=== PATIENT | male | born 1950 | race Caucasian/White ===

== ENCOUNTER → 2021-02-01 09:43 | Outpatient (BNVA) | payer MEDICARE, OTHER, SELFPAY | PROVIDERS: Family Provider Electrodiagnostic Medicine; Visit Provider Family Medicine | DX: R35.1 Nocturia (principal); Z13.6 Encounter for screening for cardiovascular disorders; E11.9 Type 2 diabetes mellitus without complications; I10 Essential (primary) hypertension; K21.9 Gastro-esophageal reflux disease without esophagitis | CPT/HCPCS: 80053; 80061; 82043; 84153; 85025 ==

== ENCOUNTER → 2021-06-28 10:10 | Outpatient (BNVA) | payer MEDICARE, SELFPAY | PROVIDERS: Family Provider Electrodiagnostic Medicine; PCP Family Medicine; Visit Provider Family Medicine | DX: G62.9 Polyneuropathy, unspecified (principal); K21.9 Gastro-esophageal reflux disease without esophagitis; J44.9 Chronic obstructive pulmonary disease, unspecified | CPT/HCPCS: 82607; 84443 ==

== ENCOUNTER → 2021-12-27 08:58 | Outpatient (BNVA) | payer MEDICARE, SELFPAY | PROVIDERS: Family Provider Electrodiagnostic Medicine; PCP Family Medicine; Visit Provider Family Medicine | DX: I10 Essential (primary) hypertension (principal); E53.8 Deficiency of other specified B group vitamins; R35.1 Nocturia; J43.1 Panlobular emphysema; G62.9 Polyneuropathy, unspecified; F17.219 Nicotine dependence, cigarettes, with unspecified nicotine-induced disorders | CPT/HCPCS: 80053; 80061; 82043; 82607; 84153; 85025 ==

== ENCOUNTER 2022-04-11 16:13 | Outpatient (RCR) | payer MEDICARE, SELFPAY | END 2022-04-13 23:59 | disposition home or self-care (01) | LOC: SPT 16:13 | PROVIDERS: PCP Family Medicine; Referring Provider Family Medicine; Visit Provider Family Medicine | DX: H81.12 Benign paroxysmal vertigo, left ear (principal) | CPT/HCPCS: 97162 ==

== ENCOUNTER 2022-06-13 07:59 | Outpatient (CLI) | payer MEDICARE, SELFPAY ==
--- NOTE | 2022-06-13 08:30 | US_ITS ---
WS: [id number] Complete ABDOMINAL ULTRASOUND HISTORY: chronic abdominal pain COMPARISON: None available. Liver: 13.6 cm in length. Liver is normal size and echogenicity with no mass or intrahepatic dilatati on. Portal Vein: Normal hepatopetal flow with monophasic waveform. Gallbladder: Prior cholecystectomy. Pancreas: Normal size and echogenicity. CBD: 0.4 cm. Right kidney: 9.7 cm x 4.8 cm x 4.6 cm. No mass, cortical thickening or hydronephrosis. Left kidney: 9.4 cm x 4.6 cm x 4.2 cm. No mass, cortical thickening or hydronephrosis. Spleen: Normal size and echogenicity. Abdominal aorta and IVC are within normal limits. No ascites. US/US abdomen complete* [id number] IMPRESSION: 1. Prior cholecystectomy. 2. Otherwise abdominal ultrasound is negative.
== END 2022-06-13 08:00 | disposition home or self-care (01) ==
PROVIDERS: PCP Family Medicine; Visit Provider Family Medicine
DX: R10.9 Unspecified abdominal pain (principal); G89.29 Other chronic pain; Z90.49 Acquired absence of other specified parts of digestive tract
CPT/HCPCS: 76700

== ENCOUNTER 2022-09-04 09:11 | Outpatient (CLI) | payer MEDICARE, SELFPAY ==
--- NOTE | 2022-09-04 09:34 | CT_ITS ---
WS: [id number] LDCT LUNG CANCER SCREENING HISTORY: smoker TECHNIQUE: Axial imaging performed from the apices to 1 cm below the costophrenic angles. Coronal and sagittal reformats are submitted with axial MIP series. All CT scans at [facility] use at least one of these dose optimization techniques: automated exposure control; mA and/or kV adjustment per patient size (includes targeted exams where dose is matched to clinical indication); or iterativ e reconstruction. DLP: 81.89 mGy.cm DIvol: Mean CTDIvol: 1.60 (mGy) COMPARISON: 09/16/2019 Diagnostic quality: Satisfactory Lung Nodules: There are no nodules greater than 4 mm throughout the lungs. There are a few tiny micro nodules scattered throughout the lungs but which are less than 3 mm. Extensive bullous and bleb disea se. Large calcification in the RIGHT lower lobe measures 1.7 x 2.8 cm and is benign. There are a few may thin linear septations within the bronchial tree. Lungs: Marked pulmonary hyperexpansion. Heart: Normal size heart. No pericardial effusion. Other findings: Small mediastinal and hilar lymph nodes. There are numerous lymph nodes in the medias tinum which have slightly increased in size and number but are all very small. These could be reactiv e. Esophagus is dilated with debris. Similar to the prior study. No adrenal mass. This splenic granul omata. Prior cholecystectomy. Osteopenia. Mild anterior wedging of T3. Remote fracture superior sternal body. CT/CT lung screening [id number] IMPRESSION: LUNG-RADS: 2-Benign Appearance or Behavior FOLLOW UP: 12 Month: Continue annual screening with LDCT OTHER FINDINGS (S MODIFIER): None.
== END 2022-09-04 09:12 | disposition home or self-care (01) ==
PROVIDERS: PCP Family Medicine; Visit Provider Family Medicine
DX: Z12.2 Encounter for screening for malignant neoplasm of respiratory organs (principal); F17.219 Nicotine dependence, cigarettes, with unspecified nicotine-induced disorders
CPT/HCPCS: 71271

== ENCOUNTER → 2022-12-05 14:27 | Outpatient (BNVA) | payer MEDICARE, SELFPAY | PROVIDERS: PCP Family Medicine; Visit Provider Family Medicine | DX: J43.1 Panlobular emphysema (principal); J84.10 Pulmonary fibrosis, unspecified | CPT/HCPCS: 71046 ==

== ENCOUNTER 2022-12-06 11:33 | Outpatient (CLI) | payer MEDICARE, SELFPAY ==
--- NOTE | 2022-12-06 11:56 | XRR_ITS ---
PROCEDURE INFORMATION: Exam: XR Thoracic Spine Exam date and time: 12/06/2022 12:00 PM Age: 72 years old Clinical indication: Pain in thoracic spine; Prior surgery; Surgery type: Esophageal; Additional info: Back pain TECHNIQUE: Imaging protocol: Radiologic exam of the thoracic spine. Views: 3 views. COMPARISON: CT chest performed September 04 2022 FINDINGS: Bones/joints: Thoracic curvature alignment is unremarkable. There is a moderate wedge-shaped compression fracture T9, developed from September 04, 2022. Remaining vertebral bodies are intact. Mild degenerative disc changes are present in the lower thoracic spine. Soft tissues: Paraspinal soft tissues are unremarkable. Large calcified mass right lower lobe unchanged previously evaluated on CT. XR/XR thoracic spine 2V [id number] IMPRESSION: Moderate wedge-shaped compression fracture T9 developed from August 2022.
== END 2022-12-06 11:34 | disposition home or self-care (01) ==
LOC: LAB 11:36
PROVIDERS: PCP Family Medicine; Visit Provider Family Medicine
DX: M48.54XA Collapsed vertebra, not elsewhere classified, thoracic region, initial encounter for fracture (principal)
CPT/HCPCS: 72070

== ENCOUNTER 2022-12-26 14:41 | Outpatient (CLI) | payer MEDICARE, SELFPAY ==
--- NOTE | 2022-12-26 15:00 | CTR_ITS ---
PROCEDURE INFORMATION: Exam: CTA Abdomen With Contrast Exam date and time: 12/26/2022 3:34 PM Age: 72 years old Clinical indication: Abdominal pain; Localized; Right upper quadrant (ruq); Prior surgery; Surgery type: Gb, esophagus; Additional info: Chronic abd pain TECHNIQUE: Imaging protocol: Computed tomographic angiography of the abdomen with contrast. 3D rendering (Not supervised by radiologist): MIP and/or 3D reconstructed images were created by the technologist. Radiation optimization: All CT scans at this facility use at least one of these dose optimization techniques: automated exposure control; mA and/or kV adjustment per patient size (includes targeted exams where dose is matched to clinical indication); or iterative reconstruction. Contrast material: OMNI 350; Contrast volume: 95 ml; Contrast route: INTRAVENOUS (IV); REPORTING DATA: Count of CT and Cardiac NM exams in prior 12 months: This patient has received [address] and 0 known cardiac nuclear medicine studies in the 12 months prior to the current study. COMPARISON: CT angio abdomen [id number] 04/16/2019 9:24 AM RADIATION DOSE METRICS: Total DLP (mGy-cm): 150.2 FINDINGS: Lungs: Emphysematous changes. Aorta: No aortic aneurysm. No aortic dissection. Celiac trunk and mesenteric arteries: Celiac and superior mesenteric artery proximal atherosclerosis with less than 25% luminal narrowing. Renal arteries: Right proximal renal artery large amount of atherosclerotic calcification with 80-90% luminal narrowing. Left renal artery eccentric atherosclerotic calcification with suspected 70-80% luminal narrowing. Liver: Hepatic steatosis. Gallbladder and bile ducts: Cholecystectomy. Pancreas: Normal. No ductal dilation. Spleen: Normal. No splenomegaly. Adrenal glands: Normal. No mass. Kidneys and ureters: Normal. No hydronephrosis. Stomach and bowel: Prominent fluid in the small bowel without dilation may reflect an enteritis. Lymph nodes: Unremarkable. No enlarged lymph nodes. Intraperitoneal space: Unremarkable. No free air. No significant fluid collection. Bones/joints: L4 vertebral body superior endplate minimal compression deformity without retropulsion of bony fragments, new compared to prior exam. Soft tissues: Unremarkable. CT/CT angio abdomen [id number] IMPRESSION: 1. Prominent fluid in the small bowel without dilation may reflect an enteritis. 2. Right proximal renal artery large amount of atherosclerotic calcification with 80-90% luminal narrowing. 3. Left renal artery eccentric atherosclerotic calcification with suspected 70-80% luminal narrowing. 4. Celiac and superior mesenteric artery proximal atherosclerosis with less than 25% luminal narrowing. 5. Emphysematous changes. 6. Hepatic steatosis. 7. Cholecystectomy. 8. L4 vertebral body superior endplate minimal compression deformity without retropulsion of bony fragments, new compared to prior exam.
[2022-12-26 15:30] LABS: Blood Urea Nitrogen 14 mg/dL (8-23)
[2022-12-26] MEDS: iohexol 350 mg/mL 500 mL Btl (per mL) IV (15:42)
== END 2022-12-26 14:42 | disposition home or self-care (01) ==
LOC: RAD 14:44
PROVIDERS: PCP Family Medicine; Visit Provider Family Medicine
DX: R10.9 Unspecified abdominal pain (principal); I70.1 Atherosclerosis of renal artery; K55.1 Chronic vascular disorders of intestine; K76.0 Fatty (change of) liver, not elsewhere classified; Z90.49 Acquired absence of other specified parts of digestive tract
CPT/HCPCS: 74175; 82565; 84520; Q9967

== ENCOUNTER 2023-01-04 12:19 | Outpatient (CLI) | payer MEDICARE, SELFPAY ==
--- NOTE | 2023-01-04 13:00 | MR_ITS ---
WS: [id number] MRI THORACIC SPINE WITHOUT CONTRAST TECHNIQUE: Sagittal T1, T2 and STIR imaging. Axial T2 imaging. Noncontrast imaging obtained. CLINICAL INFORMATION: S29.019A - Strain of muscle and tendon of unspecified wal... COMPARISON: Radiograph December 04, 2022 FINDINGS: Counting performed from the craniocervical junction. Moderate thoracic kyphosis. Acute compression fracture in the lower thoracic spine T10 with diffuse e denae and anterior wedging. Loss of approximately 40% vertebral body height anteriorly. No significant retropulsion. Fracture line visualized in the superior endplate. Mild paravertebral soft tissue neil a. No other acute compression fractures. Cord signal is normal. Moderate facet arthropathy lower thoracic spine. Normal caliber thoracic aorta. Patulous thoracic eso phagus can be seen with achalasia. Moderate central canal stenosis seen on the cervical spine security sales consultant imaging at C3-C6 due to disc osteoph yte protrusions. This can be further evaluated with cervical spine MRI. Chronic biconcave compression with anterior wedging at T3 MR/MR thoracic spin wo con* [id number] IMPRESSION: 1. Acute compression with anterior wedging at T10 with diffuse edema. Loss of approximately 40% vertebral body height. No retropulsion. No high-grade central canal stenosis. 2. No other acute compression fractures. 3. Chronic biconcave compression at T3 with anterior wedging. 4. Moderate central canal stenosis in the cervical spine seen on the security sales consultant elizabeth ging. This can be further evaluated with cervical spine MRI. 5. Cord signal appears normal.
== END 2023-01-04 12:20 | disposition home or self-care (01) ==
LOC: RAD 12:23
PROVIDERS: PCP Family Medicine; Visit Provider Family Medicine
DX: S29.019A Strain of muscle and tendon of unspecified wall of thorax, initial encounter (principal); M48.54XA Collapsed vertebra, not elsewhere classified, thoracic region, initial encounter for fracture; M48.02 Spinal stenosis, cervical region; X58.XXXA Exposure to other specified factors, initial encounter
CPT/HCPCS: 72146

== ENCOUNTER → 2023-01-09 13:32 | Outpatient (BNVA) | payer MEDICARE, SELFPAY | PROVIDERS: PCP Family Medicine; Referring Provider Family Medicine; Visit Provider Physician Assistant | DX: S22.070A Wedge compression fracture of T9-T10 vertebra, initial encounter for closed fracture (principal); W13.3XXA Fall through floor, initial encounter | CPT/HCPCS: 99203 ==

== ENCOUNTER 2023-01-11 10:40 | Outpatient (CLI) | payer MEDICARE, SELFPAY | END 2023-01-11 10:41 | disposition home or self-care (01) | LOC: RADOUTREAD 01-12 10:41 → RT 01-12 11:38 | PROVIDERS: PCP Family Medicine; Visit Provider Orthopaedic Surgery | DX: Z13.6 Encounter for screening for cardiovascular disorders (principal) | CPT/HCPCS: 93005 ==

== ENCOUNTER 2023-01-17 05:38 | Day surgery (SDC) | payer MEDICARE, SELFPAY ==
[2023-01-11 10:53] VITALS: BMI 18.1
--- NOTE | 2023-01-11 11:16 | ECG_ITS ---
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 Measurements Intervals [place] Rate: 60 P: 85 [place]: 183 QRS: 61 QRSD: 75 T: 79 QT: 386 QTc: 388 Interpretive Statements SINUS RHYTHM No previous ECG available for comparison Electronically Signed On 01-11-2023 18:47:09 CDT by Иван Lazar M.D. [id number]
[2023-01-11 11:30] LABS: Anion Gap 17.3 (5-19); Blood Urea Nitrogen 23 mg/dL (8-23); Carbon Dioxide 26 mmol/L (22-29); Chloride 103 mmol/L (98-107); Glucose 96 mg/dL (65-115); Osmolality Calculated 298 mOsm/kg (285-295); Potassium 4.3 mmol/L (3.5-5.1); Sodium 142 mmol/L (136-145)
--- NOTE | 2023-01-11 17:10 | ANES.PREANE2 ---
Pre-Anesthetic Assessment Height/Weight: Height 1.68 m Weight 50.802 kg Operation Date: 01/17/23 13:15 Proposed Procedures p Kyphoplasty: T10 69573 T14.8XXA(Not Applicable) - Akil Pierce DO Familial anesthetic complications: none Was Beta Sanjay taken within 24 hours: N/A Was Clonidine taken within 24 hours: N/A Social Tobacco and No alcohol Exam alert, oriented x 3 and regular rate & rhythm Airway Submandibular: within normal limits Cervical ROM: within normal limits Mallampati: Class II Dentition: false Pulmonary Chronic Obstructive Pulmonary Disease CV/HEM Hypertension and Peripheral Vascular Disease OSITO GI Gastroesophageal Reflux Disease Anesthetic Plan ASA status: 3 Anesthesia: General Medications/Allergies Home Medications Medication Instructions Recorded Confirmed Last Taken Type albuterol sulfate 90 mcg/actuation 2 puff inhalation QID PRN 06/26/22 01/11/23 01/11/23 Rx aerosol inhaler (Ventolin HFA) shortness of breath or wheezing #8.5 grams budesonide-formoterol HFA 160 2 puff inhalation Q12H #10.2 grams 06/26/22 01/11/23 Unknown Rx mcg-4.5 mcg/actuation aerosol inhaler (Symbicort) cyanocobalamin (vitamin B-12) 1,000 mcg IM .Every 3 weeks 6 06/26/22 01/11/23 Unknown Rx 1,000 mcg/mL injection solution months #10 mL lisinopril 40 mg tablet 40 mg PO DAILY #90 tabs 06/26/22 01/11/23 01/11/23 Rx pantoprazole 40 mg tablet,delayed 40 mg PO DAILY 90 days #90 tabs 06/26/22 01/11/23 01/11/23 Rx release (Protonix) baclofen 10 mg tablet 10 mg PO TID PRN muscle spasms #60 11/21/22 01/11/23 Unknown Rx tabs amlodipine 10 mg tablet 10 mg PO DAILY #90 tabs 12/21/22 01/11/23 01/11/23 Rx tramadol 50 mg tablet 50 mg PO BID PRN pain #14 tabs 12/29/22 01/11/23 01/10/23 Rx Allergies Allergy/AdvReac Type Severity Reaction Status Date / Time No Known Allergies Allergy Verified 01/11/23 10:51 PFSH Anesthesia Medical History Arthritis of both hands GERD (gastroesophageal reflux disease) Hypertension Surgical History History of cholecystectomy History of esophageal surgery History of achalasia Family History Brother Cancer UNKNOWN KIND Sister Cancer BREAST Father Cancer PROSTATE Social History Smoking and tobacco status: current every day smoker cigarettes Packs smoked per day: 0.75 Alcohol intake: never Data Anesthesia 01/11/23 11:00 BMP 01/11/23 11:00 Sodium 142 Potassium 4.3 Chloride 103 Carbon Dioxide 26 BUN 23 Creatinine 1.0 Glucose 96 Calcium 9.0 Cardiac Studies: No Data to Display
--- NOTE | 2023-01-17 | SC_ITS ---
WS: [id number] XR lumbar spine 1V 03080 REASON FOR EXAM: or pics FINDINGS: Vertebral plasty from and left posterior oblique approach at the T10 acute/subacute compression fract ure. Radiopaque methylmethacrylate is within the central portion of the thoracic vertebrae and fractu re. There is some extravasation of the methylmethacrylate into the paravertebral soft tissues anteriorly. SC/C-arm FL for Kyphoplasty IMPRESSION: T10 vertebroplasty as above.
[2023-01-17 06:11] VITALS: BP 131/71; PULSE 57; RESP 16; TEMP 36.6; O2SAT 94
[2023-01-17] MEDS: sodium chloride 0.9% 1,000 ML 30 ML IV (06:21)
--- NOTE | 2023-01-17 06:35 | P.ANESUD_ITS ---
Pre-Anesthetic Update Pre-Anesthetic Assessment: Date of Surgery/Procedure: 01/17/23 Preop Tiana gnosis: Thoracic 10 compression fracture Proposed Procedure: Operation Date: 01/17/23 07:00 Proposed Procedures p Kyphoplasty: T10 91859 T14.8XXA(Not Applicable) - Akil Pierce, DO Any changes to Pre-Anesthetic Assessment?: No Last Intake: Intake Last Liquid Date 01/16/23 Last Liquid Time 20:00 Last Solid Date 01/16/23 Last Solid Time 16:00 Vitals: Temperature 97.8 F 01/17/23 06:11 Temperature Source Temporal Artery S can 01/17/23 06:11 Pulse Rate 57 L 01/17/23 06:11 Respiratory Rate 16 01/17/23 06:11 Blood Pressure 131/71 01/17/23 06:11 Blood Pressure Fiordaliza n 91 01/17/23 06:11 Pulse Oximetry 94 01/17/23 06:11 Oxygen Delivery Me thod 01/17/23 06:11 Exam: Pre-Anes Outpt Exam: alert, oriented x 3, clear to auscultation bilaterally and regular rate & rhythm Cardiac Studies: No Data to Display
--- NOTE | 2023-01-17 06:44 | W.PM.OPSUD ---
Surgery/Procedure H&P Update DATE OF PROCEDURE: January 17, 2023 DATE H&P PERFORMED: 01/09/23 H&P UPDATE INFORMATION: I have reviewed H&P completed within last 30 days, I have examined patient prior to procedure and No changes to prior documentation PREOP DIAGNOSIS: Thoracic 10 compression fracture PLANNED PROCEDURE: Operation Date: 01/17/23 07:00 Proposed Procedures p Kyphoplasty: T10 13377 T14.8XXA(Not Applicable) - Akil Pierce DO
[2023-01-17] MEDS: ceFAZolin 2,000 MG in sodium chloride 0.9% (plus) 50 ML 100 MG IV (06:54)
[2023-01-17] MEDS: lidocaine-epi 1% 20 mL INJ INJECTION (07:30)
[2023-01-17] MEDS: iohexol 350 mg/mL 100 mL Btl 15 ML XX (07:32)
[2023-01-17 07:55] VITALS: BP 130/72; PULSE 67; RESP 18; TEMP 36.1; O2SAT 99
--- NOTE | 2023-01-17 07:58 | SUR.OPER ---
OMNIPAQUE 350 MGI/ML 15ML TO STERILE FIELD. [id number] EXP 03/09/25. [address] TATE
[2023-01-17 08:01] VITALS: BP 124/55; PULSE 70; RESP 18; TEMP 36.1; O2SAT 99
--- NOTE | 2023-01-17 08:02 | P.OP_ITS ---
Operative Report Date of procedure: January 17, 2023 Pre-op diagnosis: Preop Diagnosis Thoracic wedge osteoportic traumatic 10 compression fracture Post-op diagnosis: same Procedure done: T10 kyphoplasty Surgeon: Akil Pierce Canceling Machine Operator: Dylan Aguilar Canceling Machine Operator: The surgical coder, Dylan Aguilar, PAC was needed for his expertise with fractures. He was important and necessary throughout the procedure to complete in a safe and timely manner. He assisted with patient positioning prepping and draping Estimated blood loss (mL): 5 Procedure: T10 kyphoplasty Patient was brought to the operative suite after undergoing anesthesia was placed in the prone position. All areas appear well-padded. Patient was then prepped and draped no sterile fashion. The T10 nerve was identified under biplanar fluoroscopy. The skin incision made just lateral to the pedicle. The awl was inserted followed by the drill. Followed by the balloon. Balloon was inflated and deflated. Cement was then inserted AP lateral fluoroscopy ensured that the cement was in good position and wound was irrigated closed with nylon suture. Sterile dressings applied patient transferred to the PACU in stable addition.
[2023-01-17 08:07] VITALS: BP 118/60; PULSE 70; RESP 16; TEMP 36.1; O2SAT 96
[2023-01-17 08:20] VITALS: BP 135/63; PULSE 66; RESP 16; O2SAT 95
--- NOTE | 2023-01-17 09:41 | XR_ITS ---
WS: [email or web address] XR lumbar spine 1V 13349 REASON FOR EXAM: or pics FINDINGS: Vertebral plasty from and left posterior oblique approach at the T10 acute/subacute compression fract ure. Radiopaque methylmethacrylate is within the central portion of the thoracic vertebrae and fractu re. There is some extravasation of the methylmethacrylate into the paravertebral soft tissues anteriorly.
--- NOTE | 2023-01-17 13:11 | ANE.PACU2 ---
Inpatient post-anesthesia follow up: Airway intact: Yes Vital signs: Temperature 97.0 F Pulse Rate 66 Respiratory Rate 16 Blood Pressure 135/63 Pulse Oximetry 95 Oxygen Delivery Me thod Room Air Oxygen Flow Rate 6 Fraction of Inspir ed Oxygen Hydration adequate: Yes Nausea and vomiting: No Pain level: 1 Mental status: Baseline
== END 2023-01-17 08:30 | disposition home or self-care (01) ==
PROVIDERS: Anesthesiology; PCP Family Medicine; Visit Provider Orthopaedic Surgery
PROC: (CPT 22513; principal; 2023-01-17 07:00)
DX: S22.070A Wedge compression fracture of T9-T10 vertebra, initial encounter for closed fracture (principal); W13.3XXA Fall through floor, initial encounter; K21.9 Gastro-esophageal reflux disease without esophagitis; I10 Essential (primary) hypertension; F17.210 Nicotine dependence, cigarettes, uncomplicated; I73.9 Peripheral vascular disease, unspecified; J44.9 Chronic obstructive pulmonary disease, unspecified
CPT/HCPCS: 22513; 72020; 76000; 80048; J0690; J1100; J2370; J2405; J2704; J2710; J3010; J3490; J7030; Q9967

== ENCOUNTER → 2023-02-01 07:48 | Outpatient (BNVA) | payer MEDICARE, SELFPAY | PROVIDERS: PCP Family Medicine; Visit Provider Physician Assistant | DX: S22.070A Wedge compression fracture of T9-T10 vertebra, initial encounter for closed fracture (principal); X58.XXXA Exposure to other specified factors, initial encounter; Z98.890 Other specified postprocedural states | CPT/HCPCS: 99024 ==

== ENCOUNTER 2023-05-22 13:13 | Outpatient (CLI) | payer MEDICARE, SELFPAY ==
--- NOTE | 2023-05-22 13:30 | XR_ITS ---
WS: [email or web address] SCREENING DEXA SCAN [employer] CLINICAL INFORMATION: T10 compression fracture COMPARISON: None. FINDINGS: The L1-L4 bone mineral density measures 0.906 g/cm2. This corresponds to a T score score of -2.6 and Z score of -1.1. Left femoral neck bone mineral density measures 0.659 g/cm2. This corresponds to a T score of -3.1 an d Z score of -1.7. Right femoral neck bone mineral density measures 0.701 g/cm2. This corresponds to a T score -2.8of an d Z score of -1.4. Mean femoral neck bone mineral density measures 0.680 g/cm2. This corresponds to a T score of -2.9 an d Z score of -1.5. IMPRESSION: Osteoporosis lumbar spine. Osteoporosis femoral necks. Patient's FRAX calculated 10 year probability for major osteoporotic fracture is 30.7% and osteoporot ic hip fracture is 26.3%.
== END 2023-05-22 13:14 | disposition home or self-care (01) ==
PROVIDERS: PCP Family Medicine; Visit Provider Family Medicine
DX: Z13.820 Encounter for screening for osteoporosis (principal); M81.0 Age-related osteoporosis without current pathological fracture; S22.070A Wedge compression fracture of T9-T10 vertebra, initial encounter for closed fracture; X58.XXXA Exposure to other specified factors, initial encounter
CPT/HCPCS: 77080

== ENCOUNTER → 2023-08-14 09:53 | Outpatient (BNVA) | payer MEDICARE, SELFPAY | PROVIDERS: PCP Family Medicine; Visit Provider Family Medicine | DX: F17.219 Nicotine dependence, cigarettes, with unspecified nicotine-induced disorders (principal); Z13.6 Encounter for screening for cardiovascular disorders; I10 Essential (primary) hypertension; E11.9 Type 2 diabetes mellitus without complications; R35.1 Nocturia; E53.8 Deficiency of other specified B group vitamins | CPT/HCPCS: 80053; 80061; 82043; 82607; 84153; 85025 ==

== ENCOUNTER 2023-09-05 09:06 | Outpatient (CLI) | payer MEDICARE, SELFPAY ==
--- NOTE | 2023-09-05 09:15 | CT_ITS ---
WS: [email or web address] LDCT LUNG CANCER SCREENING HISTORY: screening TECHNIQUE: Axial imaging performed from the apices to 1 cm below the costophrenic angles. Coronal and sagittal reformats are submitted with axial MIP series. All CT scans at [facility] use at least one of these dose optimization techniques: automated exposure control; mA and/or kV adjustment per patient size (includes targeted exams where dose is matched to clinical indication); or iterativ e reconstruction. DLP: 597.91 mGy.cm DIvol: Mean CTDIvol: 14.20 (mGy) COMPARISON: 09/04/2022 and 10/13/2019 Diagnostic quality: Satisfactory Lungs: Marked pulmonary hyperexpansion and paraseptal and centrilobular emphysema. Bilateral calcifie d granulomata. There is a large calcification in the RIGHT lower lobe with mild soft tissue which is not calcified. No new pulmonary nodule. Heart: Normal size heart. Moderate coronary artery calcifications.. Other findings: Moderate atherosclerosis aorta. Normal sized pulmonary artery. There are several medi astinal and hilar lymph nodes which are mildly enlarged. Several of these contain calcifications and are similar to the prior study. Markedly patulous esophagus. There is debris within the mid to distal esophagus. Prior cholecystectomy. Methylmethacrylate in one of the midthoracic vertebral bodies with a 20% compression fracture, probably T10. Additional compression deformity in T3 and T5 unchanged si nce 2019. IMPRESSION: CT/CT lung screening [id number] LUNG-RADS: 2S-Benign Appearance or Behavior with Significant Findings FOLLOW UP: 12 Month: Continue annual screening with LDCT OTHER FINDINGS (S MODIFIER): Patulous esophagus. This can be seen with sclerode rma.
== END 2023-09-05 09:07 | disposition home or self-care (01) ==
LOC: RAD 09:06
PROVIDERS: PCP Family Medicine; Visit Provider Family Medicine
DX: Z12.2 Encounter for screening for malignant neoplasm of respiratory organs (principal); F17.219 Nicotine dependence, cigarettes, with unspecified nicotine-induced disorders
CPT/HCPCS: 71271

== ENCOUNTER 2023-12-18 16:02 | Outpatient (CLI) | payer MEDICARE, SELFPAY ==
--- NOTE | 2023-12-18 16:30 | CT_ITS ---
WS: [email or web address] CTA ABDOMEN TECHNIQUE: Noncontrast plus contrast enhanced CTA of the abdominal aorta with coronal and sagittal re formatted images and additional MIP Images. CLINICAL INFORMATION: OSITO COMPARISON: None. DLP: 110.[address] scans at [facility] use at least one of these dose optimization techniques: automated e xposure control; mA and/or kV adjustment per patient size (includes targeted exams where dose is matc hed to clinical indication); or iterative reconstruction. FINDINGS: Bilateral renal artery stenosis. Calcified RIGHT renal artery origin with high-grade stenosis measuri ng 91% is unchanged. RIGHT distal renal artery remains patent. Normal RIGHT renal parenchymal enhance ment. Accessory and main LEFT renal artery. Mild accessory artery stenosis appears unchanged. Main renal ar melissa stenosis appears stable with focal calcification at the origin measuring 77%. Normal renal paren chymal enhancement. Mild stenosis at the celiac origin which remains patent. SMA is patent. Moderate aortic atheromatous disease. LUCIE is patent. Proximal common iliac arteries are patent. Advanced emphysematous changes in the lung apices. Calcified granuloma RIGHT lower lobe. Distended st omach with food products. Normal renal parenchymal enhancement. Adrenal glands appear normal. Moderat e spondylitic changes lumbar spine. Mild compression superior endplate L4. IMPRESSION: 1. Stable bilateral renal artery stenosis. 2. Calcified RIGHT renal artery origin with high-grade stenosis measuring 91% is unchanged. 3. Main LEFT renal artery stenosis appears stable with focal calcification at the origin measuring 7 7%. 4. Normal bilateral renal parenchymal enhancement. 5. Mild stenosis at the celiac artery origin. SMA is patent. 6. Moderate aortic atheromatous disease. 7. Stable compression superior endplate L4
[2023-12-18 16:33] LABS: Blood Urea Nitrogen 17 mg/dL (8-23)
[2023-12-18] MEDS: iohexol 350 mg/mL 500 mL Btl (per mL) IV (16:41)
== END 2023-12-18 16:03 | disposition home or self-care (01) ==
LOC: RAD 16:03
PROVIDERS: PCP Family Medicine; Visit Provider Family Medicine
DX: I70.1 Atherosclerosis of renal artery (principal); I77.1 Stricture of artery; I70.0 Atherosclerosis of aorta
CPT/HCPCS: 74175; 82565; 84520; Q9967

== ENCOUNTER 2024-01-02 08:38 | Outpatient (CLI) | payer MEDICARE, SELFPAY ==
--- NOTE | 2024-01-02 08:43 | CTR_ITS ---
PROCEDURE INFORMATION: Exam: CT Temporal Bones Without Contrast. Exam date and time: 01/02/2024 8:54 AM Age: 73 years old Clinical indication: Other: Mixed conductive and sensorineural hearing loss TECHNIQUE: Imaging protocol: Computed tomography of the temporal bones without contrast. Radiation optimization: All CT scans at this facility use at least one of these dose optimization techniques: automated exposure control; mA and/or kV adjustment per patient size (includes targeted exams where dose is matched to clinical indication); or iterative reconstruction. COMPARISON: No relevant prior studies available. RADIATION DOSE METRICS: Total DLP (mGy-cm): 398.49 FINDINGS: Right inner ear: Thinning of the roof of the right superior semicircular canal. Superior semicircular canal dehiscence cannot be excluded. Recommend clinical correlation. Right ossicles and middle ear: The middle ear ossicles are intact. Right external auditory canal: Normal. Right facial nerve canal: Normal. Right jugular foramen: No jugular dehiscence. Right carotid canal: No aberrant carotid canal. Right mastoid air cells: Fluid is seen within the inferior right mastoid air cells with intact bony septations. Left inner ear: Thinning of the roof of the left superior semicircular canal. Superior semicircular canal dehiscence cannot be excluded. Recommend clinical correlation. Left ossicles and middle ear: The middle ear ossicles are intact. Left external auditory canal: Normal. Left facial nerve canal: Normal. Left jugular foramen: No jugular dehiscence. Left carotid canal: No aberrant carotid canal. Left mastoid air cells: Well aerated mastoid air cells with intact bony septations. Orbital cavities: The orbits and globes are intact. Paranasal sinuses: Moderate mucoperiosteal thickening is seen involving the right maxillary sinus. Soft tissues: Visualized soft tissues are unremarkable. CT/CT temporal bone wo con* [id number] IMPRESSION: 1. Thinning of the roofs of the bilateral superior semicircular canals. Superior semicircular canal dehiscence cannot be excluded. Recommend clinical correlation. 2. Small amount of fluid in the inferior right mastoid air cells.
== END 2024-01-02 08:39 | disposition home or self-care (01) ==
LOC: RAD 08:38
PROVIDERS: PCP Family Medicine; Visit Provider Otolaryngology
DX: H90.8 Mixed conductive and sensorineural hearing loss, unspecified (principal)
CPT/HCPCS: 70480

== ENCOUNTER → 2024-02-11 08:36 | Outpatient (BNVA) | payer MEDICARE, SELFPAY | PROVIDERS: PCP Family Medicine; Visit Provider Family Medicine | DX: I70.1 Atherosclerosis of renal artery (principal) | CPT/HCPCS: 80048 ==

== ENCOUNTER → 2024-03-18 12:30 | Outpatient (BNVA) | payer MEDICARE, SELFPAY | PROVIDERS: PCP Family Medicine; Referring Provider Family Medicine; Visit Provider Internal Medicine | DX: R07.9 Chest pain, unspecified (principal) | CPT/HCPCS: 93005; 99204 ==

== ENCOUNTER 2024-04-02 08:36 | Outpatient (CLI) | payer MEDICARE, SELFPAY ==
--- NOTE | 2024-04-02 09:24 | ECG_ITS ---
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 The perfusion scan will be documented separately. DATA: Baseline heart rate was 58 beats per minute. Baseline blood pressure was 170/90 millimeters of mercury. Maximum heart rate achieved was 131. which was 89 % of the predicted target heart rate. Maximum blood pressure was 171/90 millimeters of mercury. The reason for ending the test was completion of the protocol. The patient did not experience any symptoms. ELECTROCARDIOGRAM: BASELINE: Sinus rhythm. Normal axis. Old anteroseptal myocardial infarction otherwise no significant ST's ST changes EXERCISE: After Lexiscan injection, no ST-T changes suggestive of ischemic noted. No arrhythmia noted. CONCLUSION: Please note due to baseline abnormality of the EKG specificity and sensitivity of the EKG portion of LexiScan MIBI stress test will be low 1. EKG not suggestive of ischemia 2. Lexiscan injection unremarkable. 3. Perfusion scan will be documented separately. Electronically Signed On 04-02-2024 21:15:12 CDT by NEGRITA BOWLING [email or web address]
--- NOTE | 2024-04-02 09:26 | NMCV_ITS ---
NM irvin perf SPECT r/s* [id number] Alfonso Chand Age: 74 Gender: M : 1950 Exam Date: 04/02/2024 09:26 Ordering Phys: Иван Lazar M.D ([email or web address]) Technologist: PHILLIP Owusu Exam Location: [facility] [address] Indications: CP STRESS TEST Please see separate stress test report in [facility] for full findings IMAGE PROTOCOL Rest/Stress 1 Exercise Day Radiopharmaceutical Dose (mCi) Administration Site Administered by Rest: Tc-99m 10.4 IV PHILLIP Owusu Sestamisatci Stress:Tc-99m 32.9 IV PHILLIP Owusu Sestamibi Rest: 02-Apr-2024 60 Discovery 630 Stress: 02-Apr-2024 30 Discovery 630 0.4mg Lexiscan. Images obtained in supine and prone position. SPECT RESULTS Technical Quality: Good Raw Data Analysis: Normal, Subdiaphragmatic activity Image Corrections: No attenuation or motion correction applied Summed Stress Score: 0 Summed Rest Score: 0 Summed Difference Score: 0 PERFUSION FINDINGS SPECT images demonstrate homogeneous tracer distribution throughout the myocardium. FUNCTIONAL RESULTS (calculated via Gated SPECT) Stress Image LV EF (%): 75 Stress EDV (mL):60 TID: 1.22 Stress ESV (mL):15 FUNCTIONAL FINDINGS: There is normal left ventricular systolic function. IMPRESSIONS Myocardial perfusion imaging is normal. Elevated transient ischemic dilatation could be secondary to left ventricular hypertrophy in the absence of wall motion abnormality. Madeline Maria MD (Electronically Signed) Final Date: 02 April 2024 22:52 S
[2024-04-02 09:28] VITALS: BMI 18.2
[2024-04-02] MEDS: regadenoson 0.4 Mg/5 ml Syringe 0.400000000000000022 MG IVP (11:01)
[2024-04-02 11:18] VITALS: BP 162/79; PULSE 82
== END 2024-04-02 08:37 | disposition home or self-care (01) ==
PROVIDERS: PCP Family Medicine; Visit Provider Internal Medicine
DX: R07.9 Chest pain, unspecified (principal); R06.02 Shortness of breath
CPT/HCPCS: 36415; 78452; 93017; 96374; A9500; J2785

== ENCOUNTER → 2024-09-26 12:26 | Outpatient (BNVA) | payer MEDICARE, SELFPAY | PROVIDERS: PCP Family Medicine; Visit Provider Family Medicine | DX: E53.8 Deficiency of other specified B group vitamins (principal); R42 Dizziness and giddiness; F32.9 Major depressive disorder, single episode, unspecified | CPT/HCPCS: 82607; 84443; 85025 ==

== ENCOUNTER → 2024-09-30 14:11 | Outpatient (BNVA) | payer MEDICARE, SELFPAY | PROVIDERS: PCP Family Medicine; Visit Provider Internal Medicine | DX: I15.0 Renovascular hypertension (principal); I70.1 Atherosclerosis of renal artery; F17.210 Nicotine dependence, cigarettes, uncomplicated | CPT/HCPCS: 99214 ==

== ENCOUNTER 2024-10-09 02:21 | Inpatient (IN) | payer MEDICARE, SELFPAY ==
[2024-10-09] VITALS (39 sets, daily range): BP systolic 109–149; BP diastolic 59–81; PULSE 62–97; RESP 16–28; TEMP 36.3–37.3; O2SAT 90–100; BMI 18.8
--- NOTE | 2024-10-09 02:27 | XRR_ITS ---
PROCEDURE INFORMATION: Exam: XR Left Hip Exam date and time: 10/09/2024 2:31 AM Age: 74 years old Clinical indication: Injury or trauma; Fall; Blunt trauma (contusions or hematomas); Left; Hip and pelvic region; Additional info: Fall, left hip pain. With pelvis TECHNIQUE: Imaging protocol: Radiologic exam of the left hip. Views: 2 or 3 views hip with pelvis when performed. COMPARISON: CT angio abdomen [id number] 12/18/2023 4:34 PM FINDINGS: Bones/joints: Acute subcapital fracture in the left hip without dislocation. No destructive changes. Joint space is preserved. Soft tissues: Unremarkable. XR/XR hip LT 2-3V wo/w pel* [id number] IMPRESSION: Acute subcapital fracture in the left hip without dislocation.
--- NOTE | 2024-10-09 02:39 | ED_ITS ---
HPI - Fall 2 General: Chief Complaint: ER Hold Stated Complaint: left hip pain post fall Time Seen by Provider: 10/09/24 02:24 History of Present Illness: 74-year-old man with a history of COPD a nd hypertension who presents emergency room by ambulance after he got up from bed tonight and was walking to the bathroom and forgot his flashlight fell hurting his left hip and now is not able to bear weight. Some slight shortening with no rotation. Pain in the hip area. With movement. And with palpation. No head injury. No loss of consciousness. No altered mental status. No chest pain. No shortness of breath. No abdominal pain. No nausea or vomiting. Related Data Home Medications Medication Instructions Recorded Confirmed diazepam 2 mg tablet 2 mg PO BID PRN 09/04/24 09/30/24 Previous Rx's Medication Instructions Recorded albuterol sulfate 90 mcg/actuation See Rx Instructions .Route 02/11/24 aerosol inhaler (Ventolin HFA) .COMPLEX #8.5 grams amlodipine 10 mg tablet 10 mg PO DAILY #90 tabs 02/11/24 baclofen 10 mg tablet 10 mg PO .qhs PRN muscle spasms 02/11/24 #30 tabs pantoprazole 40 mg tablet,delayed 40 mg PO DAILY #90 tabs 02/11/24 release tramadol 50 mg tablet 50 mg PO BID PRN pain 30 days #60 02/29/24 tabs budesonide-formoterol HFA 160 2 puff inhalation Q12H #10.2 grams 04/07/24 mcg-4.5 mcg/actuation aerosol inhaler (Symbicort) lisinopril 40 mg tablet See Rx Instructions .Route 08/19/24 .COMPLEX #90 tabs bupropion HCl 150 mg 24 hr tablet, 150 mg PO QAM #30 tabs 09/26/24 extended release Allergies Allergy/AdvReac Type Severity Reaction Status Date / Time No Known Allergies Allergy Verified 10/09/24 02:37 Review of Systems 2 Narrative: Constitutional symptoms: Negative except as documented in HPI. Skin symptoms: Negative except as documented in HPI. Eye symptoms: Negative except as documented in HPI. ENMT symptoms: Negative except as documented in HPI. Respiratory symptoms: Negative except as documented in HPI. Cardiovascular symptoms: Negative except as documented in HPI. Gastrointestinal symptoms: Negative except as documented in HPI. Genitourinary symptoms: Negative except as documented in HPI. Musculoskeletal symptoms: Negative except as documented in HPI. Neurologic symptoms: Negative except as documented in HPI. Psychiatric symptoms: Negative except as documented in HPI. Endocrine symptoms: Negative except as documented in HPI. PFS ED 2 PFSH: Medical History COPD (chronic obstructive pulmonary disease) Screening for lung cancer Chronic low back pain OSITO (renal artery stenosis) B12 deficiency Nicotine dependence, cigarettes, with unspecified nicotine-induced disorders 40pk yr hx Problem of left ear seeing Dr. Reyes at [facility]--problems with balance after ear surgery, getting injections once a month and going to start PT Hypertension GERD (gastroesophageal reflux disease) Arthritis of both hands Surgical History Hx of kyphoplasty T10 traumatic compression fx History of ear surgery L ear--middle ear titanium bone; [facility] Summer 2023 History of cholecystectomy History of esophageal surgery History of achalasia; R thoracotomy for it Family History Brother Cancer UNKNOWN KIND Sister Cancer BREAST Father Cancer PROSTATE Social History Smoking and tobacco/nicotine status: current every day tobacco/nicotine user cigarettes Packs smoked per day: 0.25 Alcohol intake: never Substance/Drug Use: never Household members: spouse Marital status: Number of children: 3 Current occupational status: retired 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 Skin: Warm, dry. Head: Normocephalic, atraumatic. Neck: Supple, trachea midline. Eye: Extraocular movements are intact. Ears, nose, mouth and throat: mucosa moist. Cardiovascular: Regular, Normal peripheral perfusion. Respiratory: Lungs are clear to auscultation, respirations are non-labored, breath sounds are equal, Symmetrical chest wall expansion. Gastrointestinal: Soft, Nontender, Non distended Musculoskeletal: Shortening without rotation of the left leg. Pain in the hip area with palpation and with movement. Neurological: Alert and oriented, No focal neurological deficit observed. Psychiatric: Cooperative, appropriate mood & affect. Course 2 Vital Signs: Vital signs: Vital Signs Temperature 97.8 F 10/09/24 02:32 Pulse Rate 75 10/09/24 03:00 Respiratory Rate 17 10/09/24 02:32 Blood Pressure 149/74 10/09/24 02:32 Pulse Oximetry 93 10/09/24 03:00 Oxygen Delivery Me thod Room Air 10/09/24 03:00 MDM - Fall Medical Decision Making X-ray of the left hip and pelvis: There is a slightly impacted left femoral neck fracture. This was reviewed and interpreted by myself the emergency room physician. I also reviewed the radiology report. Chest x-ray: Some haziness in the upper lung farr. Stable calcified lesion in the right lung. This was reviewed and interpreted by myself the emergency room physician. I also reviewed the radiology report. Lab Review: Laboratory results were reviewed and interpreted by myself the emergency room physician. No leukocytosis. No anemia. No renal failure. Liver enzymes are normal. I reviewed the patient's medical record. Reexamination: Patient remained stable. No increased work of breathing. No altered mental status. No focal motor deficits. Consultation: I spoke with Dr. Madison who will admit the patient to the hospitalist service. Consultation: I have contacted Dr. Mcdaniels with orthopedics. He can see the patient in consult tomorrow. Assessment and plan: Hip fracture -I discussed the patient with the hospitalist on-call who is admitting the patient. - Discussed findings and plan with patient. Answered any questions. - All laboratory values were reviewed and interpreted personally by myself, the ER physician - All imaging was reviewed and interpreted personally by myself, the ER physician. - Evaluation and treatment of this problem were appropriate in the emergency setting Lab Data 10/09/24 02:53 10/09/24 02:53 Laboratory Results WBC 9.94 10^3/uL (3.29-11.43) 10/09/24 02:53 RBC 4.12 10^6/uL (3.85-5.65) 10/09/24 02:53 Hgb 12.20 g/dL (11.27-16.99) 10/09/24 02:53 Hct 37.3 % (37-53) 10/09/24 02:53 MCV 90.5 fl (82-101) 12/26/24 02:53 MCH 29.6 pg (27-33) 10/09/24 02:53 MCHC 32.7 g/dL (30-55) 10/09/24 02:53 RDW 14.6 % (12.1-15.1) 10/09/24 02:53 Plt Count 315 10^3/cmm (157-399) 10/09/24 02:53 MPV 9.3 fL (7.4-10.4) 10/09/24 02:53 Neut % (Auto) 83.1 % 10/09/24 02:53 Lymph % (Auto) 9.3 % 10/09/24 02:53 Freestone % (Auto) 5.5 % 10/09/24 02:53 Eos % (Auto) 1.3 % 10/09/24 02:53 Baso % (Auto) 0.4 % 10/09/24 02:53 Neut # (Auto) 8.26 10^3/uL (1.8-7.7) H 10/09/24 02:53 Lymph # (Auto) 0.9 10^3/uL (0.8-4.8) 10/09/24 02:53 Freestone # (Auto) 0.6 10^3/uL (0.2-0.9) 10/09/24 02:53 Eos # (Auto) 0.1 10^3/uL (0.0-0.8) 10/09/24 02:53 Baso # (Auto) 0.0 10^3/uL (0.0-0.1) 10/09/24 02:53 Nucleated RBC % (auto) 0 % 10/09/24 02:53 Nucleated RBCs # 0.0 /100WBC 10/09/24 02:53 PT 12.90 SECONDS (12.1-14.9) 10/09/24 02:53 INR 0.94 (0.8-1.2) 10/09/24 02:53 APTT 31.3 SECONDS (23.9-36.7) 10/09/24 02:53 Sodium 142 mmol/L (136-145) 10/09/24 02:53 Potassium 3.9 mmol/L (3.5-5.1) 10/09/24 02:53 Chloride 106 mmol/L (98-107) 10/09/24 02:53 Carbon Dioxide 25 mmol/L (22-29) 10/09/24 02:53 Anion Gap 14.9 (5-19) 10/09/24 02:53 BUN 17 mg/dL (8-23) 10/09/24 02:53 Creatinine 1.0 mg/dL (0.7-1.2) 10/09/24 02:53 GFR Calculation Not Reportable 10/09/24 02:53 Glucose 96 mg/dL (65-115) 10/09/24 02:53 Calculated Osmolality 295 mOsm/kg (285-295) 10/09/24 02:53 Calcium 8.8 mg/dL (8.5-10.5) 10/09/24 02:53 Total Bilirubin 0.2 mg/dL (0.15-1.2) 10/09/24 02:53 AST 19 U/L (0-40) 10/09/24 02:53 ALT 16 U/L (0-41) 10/09/24 02:53 Alkaline Phosphatase 96 U/L (40-130) 10/09/24 02:53 Total Protein 6.4 g/dL (6.6-8.7) L 10/09/24 02:53 Albumin 3.6 g/dL (3.5-5.2) 10/09/24 02:53 Globulin 2.8 g/dL (1.3-4.6) 10/09/24 02:53 All radiology interpretation(s) finalized by discharge Discharge Plan Discharge Patient Disposition: Admitted As Inpatient Admit Provider: An Madison Clinical Impression: Closed hip fracture Condition: Stable Coding Level of Care Code ED Cold Reduction Roller for Tam Soto
--- NOTE | 2024-10-09 02:41 | ECG_ITS ---
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 [email or web address]
--- NOTE | 2024-10-09 02:41 | XRR_ITS ---
PROCEDURE INFORMATION: Exam: XR Chest Exam date and time: 10/09/2024 2:57 AM Age: 74 years old Clinical indication: Injury or trauma; Fall; Blunt trauma (contusions or hematomas); Additional info: Pre surgical work up TECHNIQUE: Imaging protocol: Radiologic exam of the chest. Views: 1 view. COMPARISON: CT lung screening [id number] 09/05/2023 9:12 AM FINDINGS: Lungs: Stable 2.6 cm right lower lobe lung mass with calcification. No focal consolidation. Bilateral hyperaeration with COPD change. Pleural spaces: Unremarkable. No pleural effusion. No pneumothorax. Heart/Mediastinum: Unremarkable. No cardiomegaly. Bones/joints: Unremarkable. XR/XR chest 1V portable [id number] IMPRESSION: No acute process in the chest
--- NOTE | 2024-10-09 02:48 | P.HP_ITS ---
Providers/Chief Complaint 2 Admitting Physician: An Madison MD Primary Care Provider: Marla Mooney MD Chief Complaint: left hip pain post fall History of Present Illness Alfonso Chand is a 74 yo male w/ COPD, not on O2, HTN, Depression, & GERD, who was brought to [facility]'s ED on 08/08/2024 after a fall. The patient states that he had L. ear surgery 3-4months ago, and since then he has had difficulties with his balance. The patient states that he woke up to go and use the restroom. He did not turn his flash light on. He fell on his left hip. His heard him fall & helped him back to the bed. The patient's called their son who called EMS. THe patient denies fever, chills, headaches, dizziness, light headedness, visual disturbances, headaches, otalgia, ear pressure, tinnitus, CP, palpitations, SOB, coughing, wheezing, diarrhea, melena, hematochezia or sxs. He endorses chronic nasal congestion. In the ED, his vital signs were within normal limits. His EKG showed NSR with no ST changes, and a QTc of 431. His CXR showed a 2.6cm R. LL mass w/ calcification. His pelvic Xray showed an acute subcapital fracture of the L. hip w/o dislocation. He was given 2 mg of morphine IVP x 1 which decreased his pain to a 3/10. Orthopedic surgery was consulted from the ED. Orthopedic surgery was consulted from the ED. Review of Systems 2 Const: Denies: fever(s), chills or change in appetite Eyes: Denies: change in vision ENMT: Reports: nasal congestion (chronic) and other (no ear pressure); Denies: ear or mastoid pain, ear discharge or tinnitus Card: Denies: chest pain, palpitations, swelling of feet/ankles, lightheadedness or syncope Resp: Denies: dyspnea, productive cough or wheezing GI: Reports: hematochezia (on the toilet paper); Denies: abdominal pain, nausea, vomiting, diarrhea, constipation or melena : Denies: difficulty urinating, dysuria, urinary frequency, urinary urgency or hematuria Musc: Denies: extremity pain or extremity swelling Skin/Breast: Denies: rash or new lesions Neuro: Reports: other (no syncope); Denies: headache(s) or dizziness Psych: Reports: depression; Denies: anxiety, suicidal ideation or homicidal ideation Endo: Denies: cold intolerance or heat intolerance Gerald/Lymph: Reports: easy bruising; Denies: easy bleeding Medications/Allergies Home Medications Medication Instructions Recorded Confirmed Last Taken Type albuterol sulfate 90 mcg/actuation See Rx Instructions .Route 02/11/24 09/30/24 Unknown Rx aerosol inhaler (Ventolin HFA) .COMPLEX #8.5 grams amlodipine 10 mg tablet 10 mg PO DAILY #90 tabs 02/11/24 09/30/24 Unknown Rx baclofen 10 mg tablet 10 mg PO .qhs PRN muscle spasms 02/11/24 09/30/24 Unknown Rx #30 tabs pantoprazole 40 mg tablet,delayed 40 mg PO DAILY #90 tabs 02/11/24 09/30/24 Unknown Rx release tramadol 50 mg tablet 50 mg PO BID PRN pain 30 days #60 02/29/24 09/30/24 Unknown Rx tabs budesonide-formoterol HFA 160 2 puff inhalation Q12H #10.2 grams 04/07/24 09/30/24 Unknown Rx mcg-4.5 mcg/actuation aerosol inhaler (Symbicort) lisinopril 40 mg tablet See Rx Instructions .Route 08/19/24 09/30/24 Unknown Rx .COMPLEX #90 tabs diazepam 2 mg tablet 2 mg PO BID PRN 09/04/24 09/30/24 Unknown History bupropion HCl 150 mg 24 hr tablet, 150 mg PO QAM #30 tabs 09/26/24 09/26/24 Unknown Rx extended release Allergies Allergy/AdvReac Type Severity Reaction Status Date / Time No Known Allergies Allergy Verified 10/09/24 02:37 PFSH Acute 2 PFSH: Medical History COPD (chronic obstructive pulmonary disease) Screening for lung cancer Chronic low back pain OSITO (renal artery stenosis) B12 deficiency Nicotine dependence, cigarettes, with unspecified nicotine-induced disorders 40pk yr hx Problem of left ear seeing Dr. Reyes at [facility]--problems with balance after ear surgery, getting injections once a month and going to start PT Hypertension GERD (gastroesophageal reflux disease) Arthritis of both hands Surgical History Hx of kyphoplasty T10 traumatic compression fx History of ear surgery L ear--middle ear titanium bone; [facility] 2023 History of cholecystectomy History of esophageal surgery History of achalasia; R thoracotomy for it Family History Brother Cancer UNKNOWN KIND Sister Cancer BREAST Father Cancer PROSTATE Social History Smoking and tobacco/nicotine status: current every day tobacco/nicotine user cigarettes Packs smoked per day: 0.25 Alcohol intake: never Substance/Drug Use: never Household members: spouse Marital status: Number of children: 3 Current occupational status: retired 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 Vitals/I&O/Wt Last Vital Signs Temp 97.8 F 10/09/24 02:32 Pulse 62 10/09/24 02:32 Resp 17 10/09/24 02:32 BP 149/74 10/09/24 02:32 Pulse Ox 94 10/09/24 02:32 O2 Del Method Room Air 10/09/24 02:32 Weight last 48 hrs Weight 51.256 kg Physical Exam 2 Const: GENERAL APPEARANCE: cooperative and comfortable NUTRITIONAL APPEARANCE: underweight ORIENTATION/CONSCIOUSNESS: Yes awake, Yes oriented to person, Yes oriented to place and Yes oriented to time HENMT: HEAD & SCALP: normocephalic and atraumatic NOSE: Normal external nose present EXTERNAL EAR: Yes external ears normal MOUTH: Normal oral and palatal mucosa present THROAT: posterior oropharynx normal Eye: CONJUNCTIVA: Yes conjunctivae normal PUPIL: Yes Equal, round and reactive pupils present EOM: No EOM abnormal Neck/C-Spine: GENERAL: Yes normal visual inspection and Yes trachea midline THYROID: Thyroid normal CAROTIDS: No bruit CERVICAL SPINE: Yes cervical ROM normal Lymph: OTHER: No cervical or supraclavicular LAD Resp: OTHER: CTAB on anterior auscultation with no w/r/r Cardio: OTHER: RRR, no m/r/g or clicks GI: OTHER: BS+, NT, ND, no guarding, no rigidity, no rebound tenderness, or hepatosplenomegaly Extremity: GENERAL: No clubbing, No cyanosis and No edema Neuro: CRANIAL NERVES: Yes CN normal except as noted SPEECH: speech normal SENSORY EXAM: No sensory level loss detected MOTOR EXAM: 5/5 motor strength present throughout and Normal motor muscle tone present throughout Psych: APPEARANCE: Yes grossly normal ATTITUDE: Yes calm and Yes engaged ACTIVITY/MOTOR BEHAVIOR: Yes appropriate eye contact SPEECH: Yes normal speech MOOD & AFFECT: Yes euthymic mood THOUGHT PROCESS: Normal thought process present THOUGHT CONTENT: Yes Normal thought content present A TTENTION/CONCENTRATION: Yes attention grossly intact MEMORY/COGNITION: Yes memory grossly intact Data 10/09/24 02:53 10/09/24 02:53 A&P Assessment and plan (1) Fall: (2) Closed left hip fracture: Plan Alfonso Chand is a 74 yo male w/ COPD, not on O2, HTN, Depression, & GERD, who was brought to [facility]'s ED on 08/08/2024 after a fall. In the ED, his vital signs were within normal limits. His EKG showed NSR with no ST changes, and a QTc of 431. His CXR showed a 2.6cm R. LL mass w/ calcification. His pelvic Xray showed an acute subcapital fracture of the L. hip w/o dislocation. He was given 2 mg of morphine IVP x 1 which decreased his pain to a 3/10. #Acute subcapital fracture of the L. hip w/o dislocation -Orthopedic surgery consulted. NPO at this time. Pending surgery. - Pain control with Morphine 2mg IVP q4h prn at this time. #Falls - Will need PT. #Disequilibrium - May benefit from therapy #COPD not in exacerbation: Duonebs ordered and Symbicort reordered. #HTN: No acute issues at this time. N.p.o. at this time. Resume home meds as appropriate. #Depression??: On bupropion. Resume; although patient is n.p.o. at this time. #GERD: Resumed as IV Pantoprazole #R. LL mass: Outpatient f/u DVT ppx: SCD GI ppx: PPI Suni Chand (): [phone] Attestations 2 Medical Necessity Statement*: Patient needs to stay for greater than 2 midnights for operation on his left hip and postop assessment and evaluation. Time Spent in Patient Care: >60mins spent interviewing the patient, reviewing chart, examining the patient, reviewing labs/images, formulating plan, and coordinating care. Coding Level of Care Code 86829 Diagnoses Fall W19.XXXA Closed left hip fracture S72.002A
[2024-10-09 02:58] LABS: Basophils % 0.4 %; Eosinophils # 0.1 10^3/uL (0.0-0.8); Eosinophils % 1.3 %; Hematocrit 37.3 % (37-53); Lymphocytes # 0.9 10^3/uL (0.8-4.8); Lymphocytes % 9.3 %; Mean Corpuscular HGB Conc 32.7 g/dL (30-55); Mean Corpuscular Hemoglobin 29.6 pg (27-33); Mean Corpuscular Volume 90.5 fl (82-101); Mean Platelet Volume 9.3 fL (7.4-10.4); Monocytes # 0.6 10^3/uL (0.2-0.9); Monocytes % 5.5 %; Neutrophils # 8.26 10^3/uL (1.8-7.7); Neutrophils % 83.1 %; Nucleated Red Blood Cells % 0 %; Platelet Count 315 10^3/cmm (157-399); Red Blood Count 4.12 10^6/uL (3.85-5.65); Red Cell Distribution Width 14.6 % (12.1-15.1); White Blood Count 9.94 10^3/uL (3.29-11.43)
[2024-10-09 03:13] LABS: INR 0.94 (0.8-1.2); Partial Thromboplastin Time 31.3 SECONDS (23.9-36.7)
[2024-10-09 03:21] LABS: Alanine Aminotransferase 16 U/L (0-41); Albumin Level 3.6 g/dL (3.5-5.2); Alkaline Phosphatase 96 U/L (40-130); Anion Gap 14.9 (5-19); Aspartate Amino Transferase 19 U/L (0-40); Blood Urea Nitrogen 17 mg/dL (8-23); Calcium 8.8 mg/dL (8.5-10.5); Carbon Dioxide 25 mmol/L (22-29); Chloride 106 mmol/L (98-107); Creatinine Clr Calc Pharmacy 52.6189; Globulin 2.8 g/dL (1.3-4.6); Glucose 96 mg/dL (65-115); Osmolality Calculated 295 mOsm/kg (285-295); Potassium 3.9 mmol/L (3.5-5.1); Sodium 142 mmol/L (136-145); Total Bilirubin 0.2 mg/dL (0.15-1.2); Total Protein 6.4 g/dL (6.6-8.7)
[2024-10-09 03:49] LABS: Bilirubin Urine Negative (Negative); Blood Urine Negative (Negative); Glucose Urine UA Negative (Normal); Ketones Urine Negative (Negative); Leukocyte Esterase Urine Negative (Negative); Nitrate Urine Negative (Negative); Protein Urine Negative (Negative); Specific Gravity, Urine 1.008 (1.005-1.030); Urine Appearance Clear (CLEAR); Urine Color Yellow (Yellow); Urobilinogen Urine 0.2 mg/dL (Negative)
[2024-10-09 03:54] LABS: Bacteria Urine None Seen /hpf; Hyaline Casts Urine 0-4 /lpf; RBC Urine 0-2 /hpf (0-2); Squamous Epithelial Cell Urine 0-5 /hpf (0-5); WBC Urine 0-5 /hpf (0-5)
[2024-10-09] MEDS: ondansetron 2 mg/ML SDV 2 mL 4 MG IVP (04:25)
[2024-10-09] MEDS: morphine 4 mg/mL SDV 1 mL 2 MG IVP ×3 (04:26→11:32)
[2024-10-09] MEDS: buPROPion XL (24 HR) 150 mg Tablet PO (07:30)
[2024-10-09] MEDS: pantoprazole 40 mg SDV IVP (07:31)
[2024-10-09] MEDS: albuterol 2.5 mg/3 mL Neb INHALATION ×3 (08:03→21:31)
[2024-10-09] MEDS: budesonide 0.5 mg/2 mL Neb INHALATION ×2 (08:03→21:31)
--- NOTE | 2024-10-09 11:10 | ANES.PREANE2 ---
Pre-Anesthetic Assessment Height/Weight: Height 5 ft 5 in Weight 113 lb 9.6 oz Temp Pulse Resp BP Pulse Ox O2 Del Method O2 Flow Rate 97.9 F 72 18 136/75 93 Room Air 2 10/09/24 07:47 10/09/24 08:07 10/09/24 08:07 10/09/24 07:47 10/09/24 08:07 10/09/24 08:26 10/09/24 04:26 Operation Date: 10/09/24 13:20 Proposed Procedures p Hemiarthroplasty Hip(Left) - Dirk Mcdaniels DO Anesthetic Plan ASA status: 3 Anesthesia: General Other: Patient presents with a left hip fracture. No prior issues with anesthesia NPO since History of COPD, no home O2 Hypertension on amlodipine and lisinopril GERD on Protonix Labs from today reviewed and acceptable for procedure, hemoglobin 12.2 Type and screen ordered EKG showing sinus rhythm with nonspecific T wave abnormality Plan for general anesthesia Medications/Allergies Home Medications Medication Instructions Recorded Confirmed Last Taken Type albuterol sulfate 90 mcg/actuation See Rx Instructions .Route 02/11/24 10/09/24 Unknown Rx aerosol inhaler (Ventolin HFA) .COMPLEX #8.5 grams amlodipine 10 mg tablet 10 mg PO DAILY #90 tabs 02/11/24 10/09/24 10/08/24 Rx pantoprazole 40 mg tablet,delayed 40 mg PO DAILY #90 tabs 02/11/24 10/09/24 10/08/24 Rx release tramadol 50 mg tablet 50 mg PO BID PRN pain 30 days #60 02/29/24 10/09/24 10/08/24 Rx tabs budesonide-formoterol HFA 160 2 puff inhalation Q12H #10.2 grams 04/07/24 10/09/24 10/08/24 Rx mcg-4.5 mcg/actuation aerosol inhaler (Symbicort) bupropion HCl 150 mg 24 hr tablet, 150 mg PO QAM #30 tabs 09/26/24 10/09/24 10/08/24 Rx extended release lisinopril 40 mg tablet 40 mg PO DAILY 10/09/24 10/09/24 10/08/24 History Allergies Allergy/AdvReac Type Severity Reaction Status Date / Time No Known Allergies Allergy Verified 10/09/24 02:37 Current Medications Generic Name Dose Route Start Last Admin Trade Name Freq PRN Reason Stop Dose Admin Albuterol Sulfate 2.5 mg 10/09/24 08:00 10/09/24 08:03 Albuterol 2.5 Mg/3 Ml Neb INHALATION 2.5 mg QID.RESPIRATORY CHERYL Administration Budesonide 0.5 mg 10/09/24 08:00 10/09/24 08:03 Budesonide 0.5 Mg/2 Ml Neb INHALATION 0.5 mg BID.RESPIRATORY CHERYL Administration Bupropion HCl 150 mg 10/09/24 06:45 10/09/24 07:30 Bupropion Xl (24 Hr) 150 Mg Tablet PO 150 mg QAM CHERYL Administration Morphine Sulfate 2 mg 10/09/24 06:48 10/09/24 07:31 Morphine 4 Mg/Ml Sdv 1 Ml IVP 2 mg Q4H PRN Administration SEVERE PAIN Pantoprazole Sodium 40 mg 10/09/24 07:00 10/09/24 07:31 Pantoprazole 40 Mg Sdv IVP 40 mg Q24H CHERYL Administration PFS Anesthesia Medical History COPD (chronic obstructive pulmonary disease) Screening for lung cancer Chronic low back pain OSITO (renal artery stenosis) B12 deficiency Nicotine dependence, cigarettes, with unspecified nicotine-induced disorders 40pk yr hx Problem of left ear seeing Dr. Reyes at [facility]--problems with balance after ear surgery, getting injections once a month and going to start PT Hypertension GERD (gastroesophageal reflux disease) Arthritis of both hands Surgical History Hx of kyphoplasty T10 traumatic compression fx History of ear surgery L ear--middle ear titanium bone; [facility] Summer 2023 History of cholecystectomy History of esophageal surgery History of achalasia; R thoracotomy for it Family History Brother Cancer UNKNOWN KIND Sister Cancer BREAST Father Cancer PROSTATE Social History Smoking and tobacco/nicotine status: current every day tobacco/nicotine user cigarettes Packs smoked per day: 0.25 Alcohol intake: never Substance/Drug Use: never Household members: spouse Marital status: Number of children: 3 Current occupational status: retired 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 Data Anesthesia 10/09/24 02:53 10/09/24 02:53 Short CBC 10/09/24 Range/Units 02:53 WBC 9.94 (3.29-11.43) 10^3/uL Hgb 12.20 (11.27-16.99) g/dL Hct 37.3 (37-53) % MCV 90.5 (82-101) fl Plt Count 315 (157-399) 10^3/cmm Neut % (Auto) 83.1 % Neut # (Auto) 8.26 H (1.8-7.7) 10^3/uL BMP 10/09/24 02:53 Sodium 142 Potassium 3.9 Chloride 106 Carbon Dioxide 25 BUN 17 Creatinine 1.0 Glucose 96 Calcium 8.8 Liver Function 10/09/24 Range/Units 02:53 Total Bilirubin 0.2 (0.15-1.2) mg/dL AST 19 (0-40) U/L ALT 16 (0-41) U/L Alkaline Phosphatase 96 (40-130) U/L Albumin 3.6 (3.5-5.2) g/dL Urine 10/09/24 Range/Units 03:02 Urine Color Yellow (Yellow) Urine Appearance Clear (CLEAR) Urine pH 8.0 A (5-7) Ur Specific Morrill 1.008 (1.005-1.030) Urine Protein Negative (Negative) Urine Glucose (UA) Negative (Normal) Urine Ketones Negative (Negative) Urine Nitrate Negative (Negative) Urine Bilirubin Negative (Negative) Ur Leukocyte Esterase Negative (Negative) Urine RBC 0-2 (0-2) /hpf Urine WBC 0-5 (0-5) /hpf Coags 10/09/24 02:53 PT 12.90 INR 0.94 APTT 31.3 Cardiac Studies: Sestamibi Stress Test (Cardiology) 04/02/24
--- NOTE | 2024-10-09 11:14 | XRR_ITS ---
PROCEDURE INFORMATION: Exam: XR Left Femur Exam date and time: 10/09/2024 12:33 PM Age: 74 years old Clinical indication: Other: Pre op; Additional info: Left hip FX TECHNIQUE: Imaging protocol: Radiologic exam of the left femur. Views: 2 views. COMPARISON: CR (PELVIS, ) 10/09/2024 2:31 AM FINDINGS: Bones/joints: Subcapital fracture of the left hip, as noted on left hip exam. No other fracture seen. Remainder of the left femur appears unremarkable. Hip and knee joints appear maintained. Soft tissues: No significant soft tissue abnormality. XR/XR femur LT min 2V* [id number] IMPRESSION: Subcapital fracture of the left hip as noted on left hip exam. Remainder of the femur is unremarkable.
--- NOTE | 2024-10-09 11:14 | P.CONIM_ITS ---
Providers/Reason For Consult 2 Consulting Physician/Specialty*: Dirk Mcdaniels DO/orthopedic surgery Reason for Consult*: Left hip displaced femoral neck fracture Requesting Physician: Dr. Feliz/Dr. Matthews Attending Physician: Luis Felipe Garrett MD Primary Care Provider: Marla Mooney MD History of Present Illness History of Present Illness Alfonso Chand is a 74 year old male presents emergency department overnight after a ground-level fall onto the left hip. Patient brought to the emergency department found to have a displaced left hip femoral neck fracture. Internal medicine is admitted patient. Orthopedics was consulted for treatment evaluation recommendations. Patient denies any symptoms or issues prior to the fall. According to the the patient had an inner ear surgery over the summer and had some issues with his balance since. His baseline is he ambulates with a cane. Denies being on any blood thinners denies hitting his head denies any other pain elsewhere besides his left hip. Family at bedside present and answers questions. Review of Systems 2 General: Reports: 10 or more systems reviewed and unremarkable except in HPI and below Medications/Allergies Home Medications Medication Instructions Recorded Confirmed Last Taken Type albuterol sulfate 90 mcg/actuation See Rx Instructions .Route 02/11/24 10/09/24 Unknown Rx aerosol inhaler (Ventolin HFA) .COMPLEX #8.5 grams amlodipine 10 mg tablet 10 mg PO DAILY #90 tabs 02/11/24 10/09/24 10/08/24 Rx pantoprazole 40 mg tablet,delayed 40 mg PO DAILY #90 tabs 02/11/24 10/09/24 10/08/24 Rx release tramadol 50 mg tablet 50 mg PO BID PRN pain 30 days #60 02/29/24 10/09/24 10/08/24 Rx tabs budesonide-formoterol HFA 160 2 puff inhalation Q12H #10.2 grams 04/07/24 10/09/24 10/08/24 Rx mcg-4.5 mcg/actuation aerosol inhaler (Symbicort) bupropion HCl 150 mg 24 hr tablet, 150 mg PO QAM #30 tabs 09/26/24 10/09/24 10/08/24 Rx extended release lisinopril 40 mg tablet 40 mg PO DAILY 10/09/24 10/09/24 10/08/24 History Allergies Allergy/AdvReac Type Severity Reaction Status Date / Time No Known Allergies Allergy Verified 10/09/24 02:37 Current Medications Generic Name Dose Route Start Last Admin Trade Name Freq PRN Reason Stop Dose Admin Albuterol Sulfate 2.5 mg 10/09/24 08:00 10/09/24 08:03 Albuterol 2.5 Mg/3 Ml Neb INHALATION 2.5 mg QID.RESPIRATORY CHERYL Administration Budesonide 0.5 mg 10/09/24 08:00 10/09/24 08:03 Budesonide 0.5 Mg/2 Ml Neb INHALATION 0.5 mg BID.RESPIRATORY CHERYL Administration Bupropion HCl 150 mg 10/09/24 06:45 10/09/24 07:30 Bupropion Xl (24 Hr) 150 Mg Tablet PO 150 mg QAM CHERYL Administration Morphine Sulfate 2 mg 10/09/24 06:48 10/09/24 07:31 Morphine 4 Mg/Ml Sdv 1 Ml IVP 2 mg Q4H PRN Administration SEVERE PAIN Pantoprazole Sodium 40 mg 10/09/24 07:00 10/09/24 07:31 Pantoprazole 40 Mg Sdv IVP 40 mg Q24H CHERYL Administration PFSH Acute 2 PFSH: Medical History COPD (chronic obstructive pulmonary disease) Screening for lung cancer Chronic low back pain OSITO (renal artery stenosis) B12 deficiency Nicotine dependence, cigarettes, with unspecified nicotine-induced disorders 40pk yr hx Problem of left ear seeing Dr. Reyes at [facility]--problems with balance after ear surgery, getting injections once a month and going to start PT Hypertension GERD (gastroesophageal reflux disease) Arthritis of both hands Surgical History Hx of kyphoplasty T10 traumatic compression fx History of ear surgery L ear--middle ear titanium bone; [facility] Summer 2023 History of cholecystectomy History of esophageal surgery History of achalasia; R thoracotomy for it Family History Brother Cancer UNKNOWN KIND Sister Cancer BREAST Father Cancer PROSTATE Social History Smoking and tobacco/nicotine status: current every day tobacco/nicotine user cigarettes Packs smoked per day: 0.25 Alcohol intake: never Substance/Drug Use: never Household members: spouse Marital status: Number of children: 3 Current occupational status: retired 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 Examination left lower extremity: Examination of the left lower extremity demonstrates patient has tenderness palpation of the left?hip?as well as the left lower extremity is shortened and externally rotated pt has positive logroll on?examination unable to perform Stinchfield's secondary to pain and discomfort.? Patient is able to wiggle toes plantarflex and dorsiflex ankle sensations intact to light touch distally.? Distal pulses are palpable left lower extremity is warm and well-perfused.? Mild swelling noted about the left?hip.?? Secondary survey?examination unremarkable For any acute pathology to the bilateral upper extremities or contralateral lower extremity.? pt? has no tenderness to palpation to the bilateral upper extremities joints and no noticeable deformities.? ?gross motor and sensory is intact to the bilateral upper extremities.? Contralateral lower extremity has tenderness to the?hip?knee or ankle with no appreciable deformities and is able to plantarflex and dorsiflex ankle sensations intact to light touch distally as well as wiggle toes.? Distal pulses palpable.? Negative pelvic compression test, no tenderness palpation of the spine. Urinary Catheter Management: Burnette: Cath Placed During This Visit: yes Urinary Catheter Date of Insertion: 10/09/24 Urinary Catheter Time of Insertion: 05:42 Data 10/09/24 02:53 10/09/24 02:53 Xray Ortho: Radiologist's impression: Ordering Provider/Ordering MD: Alesia Feliz MD Date of Service: 10/09/24 Procedure(s): XR hip LT 2-3V wo/w pel* [id number] Accession Number(s): [id number] Report Number: [id number] PROCEDURE INFORMATION: Exam: XR Left Hip Exam date and time: 10/09/2024 2:31 AM Age: 74 years old Clinical indication: Injury or trauma; Fall; Blunt trauma (contusions or hematomas); Left; Hip and pelvic region; Additional info: Fall, left hip pain. With pelvis TECHNIQUE: Imaging protocol: Radiologic exam of the left hip. Views: 2 or 3 views hip with pelvis when performed. COMPARISON: CT angio abdomen [id number] 12/18/2023 4:34 PM FINDINGS: Bones/joints: Acute subcapital fracture in the left hip without dislocation. No destructive changes. Joint space is preserved. Soft tissues: Unremarkable. XR/XR hip LT 2-3V wo/w pel* [id number] IMPRESSION: Acute subcapital fracture in the left hip without dislocation. A&P Assessment and plan (1) Closed left hip fracture: Plan Left hip femoral neck fracture: Orthopedics consulted Hospitalist admitted patient is primary Imaging reviewed?displaced left displaced?hip?femoral neck?fracture Labs reviewed Pain control Hold DVT prophylaxis day of surgery Nonweightbearing left lower extremity N.p.o. since midnight Plan to add on for surgery today for left hip hemiarthroplasty MDM: Patient sedated 74-year-old male who sustained a ground-level fall and has a displaced left?hip?femoral neck?fracture.? Given patient has left hip displaced femoral neck fracture we talked about treatment options in detail. We talked about her treatment options as far as nonoperative versus operative intervention.? We talked about the risks benefits complication alternatives with surgery.? Risk of surgery include but are not limited to make it better make it worse injury to nerves vessels or tendons blood clot, heart attack, stroke, on the table, infection,?hip?instability, periprosthetic?fracture.? Understanding risk of surgery patient and family understands and agrees with current plan for left hip hemiarthroplasty. All questions have been answered at this time.? Through shared decision-making elects to proceed with surgical intervention for a left?hip?hemiarthroplasty.? Given the displacement I feel best option for earlier pain control as well as early mobilization will be for left hip hemiarthroplasty patient and family understand agree with current plan. All questions answered. Coding Level of Care Code Acute Code for Chg Fwd Diagnoses Closed left hip fracture S72.002A Time Spent (min) 45
[2024-10-09] MEDS: sodium chloride 0.9% 1,000 ML 30 ML IV (12:10)
--- NOTE | 2024-10-09 12:10 | CTR_ITS ---
PROCEDURE INFORMATION: Exam: CT Head Without Contrast Exam date and time: 10/09/2024 6:28 PM Age: 74 years old Clinical indication: Dizziness; Additional info: Dizzyness TECHNIQUE: Imaging protocol: Computed tomography of the head without contrast. Radiation optimization: All CT scans at this facility use at least one of these dose optimization techniques: automated exposure control; mA and/or kV adjustment per patient size (includes targeted exams where dose is matched to clinical indication); or iterative reconstruction. COMPARISON: CT temporal bone wo con* [id number] 01/02/2024 8:54 AM RADIATION DOSE METRICS: Total DLP (mGy-cm): 952.68 FINDINGS: Brain: Mild atrophic change. Periventricular and subcortical deep white matter low attenuation bilaterally suggestive of chronic small-vessel disease change. Small old lacunar infarct within the basal ganglia also suggests chronic small-vessel disease change. No findings to indicate territorial or large vessel ischemic infarct. No intracranial hemorrhage or hematoma is seen. No mass effect or shift of midline structures. Cavernous carotid artery calcification bilaterally. Cerebral ventricles: No ventriculomegaly. Paranasal sinuses: Mild mucosal thickening within the visualized right maxillary sinus. No air-fluid levels. Mastoid air cells: Visualized mastoid air cells are well aerated. Bones: Bone windows of the skull show no acute abnormality. Soft tissues: Unremarkable. CT/CT head wo con* [id number] IMPRESSION: 1. Mild atrophic change and suggestion of bilateral chronic small-vessel disease change within the periventricular and subcortical deep white matter and basal ganglia. 2. No acute intracranial abnormality.
[2024-10-09] MEDS: acetaminophen 1,000 MG/100 ML PIGGYBACK 400 MG IV ×2 (12:45→20:12)
[2024-10-09] MEDS: ceFAZolin 2,000 mg SDV 2000 MG IVP (13:10)
[2024-10-09] MEDS: tranexamic acid 1,000 mg/10mL SDV 1000 MG IV (13:20)
[2024-10-09] MEDS: VANCOMYCIN ADD-Vantage 1,000 MG VIAL 1000 MG INTRA-ARTI (14:16)
--- NOTE | 2024-10-09 14:30 | P.OP_ITS ---
Operative Report Date of procedure: October 09, 2024 Surgeon: Dirk Mcdaniels DO Generation Technician: Ion Mcdaniels PA-C: PA was necessary for assistance in this case with leg positioning, hip reductions, retraction and protection of neurovascular structures as well as assistance in implantation wound closure and dressing application. Procedure: Preoperative diagnosis: Left hip displaced femoral neck fracture post-op diagnosis: Same Procedure done: Left?hip?hemiarthroplasty Implants: Williston insignia standard offset size 6 femoral stem Bipolar head 49 mm Femoral head +4 mm offset Surgeon: Dirk Mcdaniels DO Estimated blood loss: 100 mL IV fluids: See anesthesia record Urine output: See anesthesia record Complications: None Findings: See operative report Condition: stable Disposition: floor Brief History: Patient was seen in the emergency department and subsequently admitted after sustaining ground-level fall and found to have a displaced left hip femoral neck fracture. Patient was subsequently admitted by the hospitalist team for medical management and preoperative clearance and optimization and the [facility] surgery team was consulted for evaluation and treatment recommendations.? At that point time discussed with patient? treatment options.? We talked about nonoperative versus operative intervention talked about the risk benefits complication alternatives to surgical nonsurgical treatment options.? Risks of surgery were discussed and she understands and agrees to proceed with procedure.? At this point time would recommend a left?hip?hemiarthroplasty.? This will offer patient pain control as well as early weightbearing.? Patient was medically optimized by the primary team for the OR.? Patient and family understands risk benefits complication alternatives with surgical nonsurgical treatment options.? At this point time elects to proceed with left?hip?hemiarthroplasty.? All questions answered.? Patient understands agrees with current plan.? All questions answered. Procedure: Patient seen evaluated the preoperative holding area.? Consent was reviewed and signed with patient.? ?Pt was seen evaluated by the anesthesia department.? Once cleared for surgery patient patient was taken back to the operative suite.? Patient was then transported onto the OR table.? pt underwent anesthesia per the anesthesia department.? Once appropriately anesthetized patient was then positioned in lateral decubitus position with the left?hip?up.? Patient was placed on a pegboard appropriately secured to the bed all bony prominences well- padded.? Next the left lower extremity was then prepped and draped in sterile orthopedic fashion.? Final timeout performed.? Patient received appropriate preoperative antibiotics. A standard posterolateral approach was then made over the lateral aspect of the?hip.? Sharp scalpel incision was made through skin and subcutaneous tissue I then utilized a Quiles elevator to mobilize over the fascia.? The fascia was then split longitudinally with electrocautery.? Next a bursectomy was then performed.? I then placed Hohmann underneath the abductors.? The?hip?was placed under tension with internal rotation.? I then utilizing electrocautery performed a full-thickness release of the short external rotators and capsule in 1 full thick sleeve for lateral repair.? This was then taken down to the lesser trochanter.? Immediately on capsulotomy dense scar tissue and attempts at the body trying to heal this subacute/chronicdisplaced femoral neck fracture appreci ated.? I then placed a Hohmann above and below the neck.? I then utilized an oscillating saw to freshen the cut this was roughly half of a fingerbreadth above the lesser as patient did fracture slightly lower on the neck.? Once this was performed this access was removed with rongeur.? ?I then utilized a corkscrew to remove the head.? This was then subsequently sized and measured to be a 49 mm head size.? I then thoroughly irrigated the acetabulum.? A Hohmann was placed anteriorly and thorough inspection of the acetabulum no significant arthritic changes were noted.? I then utilized a rongeur and Bovie to remove the pulvinar.? Once this was performed I then subsequently took my trial 49 mm head and trialed this which had excellent fit and appropriate suction fit noted.? This was then subsequently removed. Once this was performed I irrigated the socket and then turned my attention towards the femoral preparation.? I utilized Bovie and rongeur to remove the soft tissue off of the saddle.? Once this was done a box osteotome followed by a canal finder and? lateralizing rattail rasp was used to appropriately lateralized in the canal.? It was determined intraoperatively that patient did have good appreciable cortices and would accommodate for a Kevin insignia press-fit implant. We have talked about cement versus press-fit with the family and patient preoperatively. I started off with a standard offset and subsequently broached to a size 6. Williston femoral stem which had appropriate fixation.? I was able to trial with this and this appeared to be appropriate length and stability. Once this was done I then removed the size 6 femoral stem and then subsequently proceeded and called for the final stem. The femoral stem size 6 was then impacted in place with appropriate anteversion and held into place , I then trialed up to a size +4 mm neck length which at that point there was which had excellent leg lengths as well as appropriate shuck, and excellent stability in all planes of motion with no evidence of instability.? At this point this was determined to being my final femoral head size.? This was subsequently dislocated the trial head was then removed the cheri l implant of bipolar head 49 mm with a +4 mm offset was then opened.? The trunnion was then cleaned and dried and this was impacted in place with excellent fixation.? I then reduced the?hip?this had excellent stability and appropriate leg lengths.? The wound bed was then thoroughly irrigated.? I then utilizing #5 Ethibond suture performed my repair of the capsule and short external rotators through bone tunnels.? ?Wound bed was then thoroughly irrigated,1 gram vanco powder placed in wound bed.? IT band was closed with strata fix suture and the deep subcutaneous and subcutaneous layers were closed with 0 strata fix and 2-0 strata fix.? Skin was then closed reapproximated with cinthya.? Silverlon dressing applied.? Patient placed in abduction pillow posterior?hip?precautions.? pt? was awakened from anesthesia and taken to PACU in stable condition Disposition: Patient taken to PACU in stable condition will receive appropriate discharge directions as well as pain medication DVT prophylaxis postoperatively.? Patient? will return to the floor postoperatively.? Patient will be weightbearing as tolerated to the lef lower extremity.? Posterior?hip?precautions. Abduction pillow in place.? DVT prophylaxis, pain medication, postoperative antibiotics and TXA.? Patient will work with PT/OT and discharge services for discharge planning.? Patient and family understands agrees with current plan.? All questions answered.? ?patient will? see me in the office in 2 weeks.
--- NOTE | 2024-10-09 14:30 | W.PM.BPON ---
Date of Procedure: 10/09/2024 Surgeon: Dirk Mcdaniels DO [employer] Teacher(s): Ion Mcdaniels PA-C Procedure(s) performed: Left hip hemiarthroplasty Findings of the procedure(s): Patient found to have displaced left femoral neck fracture underwent procedure as planned without issues or complications Estimated blood loss: 100 mL Specimen(s) removed: Femoral head removed Post-operative diagnosis: Left hip displaced femoral neck fracture
--- NOTE | 2024-10-09 14:35 | XRR_ITS ---
PROCEDURE INFORMATION: Exam: XR Left Hip Exam date and time: 10/09/2024 2:52 PM Age: 74 years old Clinical indication: Other: Post op; Prior surgery; Surgery date: Post-operative (0-2 days); Surgery type: Lt. Hip; Additional info: Post op left hip jessica, do in pacu TECHNIQUE: Imaging protocol: Radiologic exam of the left hip. Views: 2 or 3 views hip with pelvis when performed. COMPARISON: CR (PELVIS, ) 10/09/2024 2:31 AM FINDINGS: Bones/joints: Postsurgical changes with left hip prosthesis. Satisfactory or anatomic alignment and position noted. Hardware appears intact. Adjacent osseous structures show no acute abnormality. Soft tissues: Postsurgical soft tissue changes including skin cinthya. XR/XR hip LT 2-3V wo/w pel* [id number] IMPRESSION: Postsurgical change with left hip prosthesis. No acute findings otherwise.
--- NOTE | 2024-10-09 14:51 | PM.PACU ---
PACU note Narrative: 74-year-old male just underwent a right hip hemiarthroplasty. Pt transferred to PACU in stable condition. Dressing is dry. pt is awake and alert. Distal pulses are palpable toes are warm and well-perfused. Cap refill is normal and under 2 seconds. Unable to perform any further assessment of motor or sensory function due to patient still under anesthesia. Pain is controlled. Exam: unarousable Disposition: back to floor
[2024-10-09] MEDS: acetaminophen 325 mg Tablet 650 MG PO (16:12)
--- NOTE | 2024-10-09 17:26 | P.PN_ITS ---
Subjective 2 Subjective: Patient was seen this morning, denies any fevers, no chills, no cough, does report chronic dizziness, after his ear surgery Vitals/I&O/Wt Last Vital Signs Temp 97.9 F 10/09/24 15:55 Pulse 82 10/09/24 17:15 Resp 16 10/09/24 17:15 BP 131/70 10/09/24 17:15 Pulse Ox 98 10/09/24 17:15 O2 Del Method Nasal Cannula 10/09/24 17:15 O2 Flow Rate 3 10/09/24 17:07 10/09/24 10/09/24 10/09/24 06:59 14:59 22:59 Intake Total 0 / 0 Output Total 100 / 100 Balance -100 / -100 Weight last 48 hrs Weight 51.528 kg Weight 51.256 kg Physical Exam 2 Const: COMMON NORMALS: no acute distress and patient oriented x3 Resp: COMMON NORMALS: normal respiratory effort, No retractions, No use of accessory muscles and clear to auscultation bilaterally AUSCULTATION: clear to auscultation bilaterally Cardio: COMMON NORMALS: regular rate, regular rhythm, S1 normal heart sound present and S2 normal heart sound present RATE: regular rate RHYTHM: r egular rhythm HEART SOUNDS: S1 normal heart sound present and S2 normal heart sound present GI: COMMON NORMALS: Normal to inspection, nondistended, normoactive bowel sounds present and non-tender Extremity: COMMON NORMALS: no pedal edema Neuro: COMMON NORMALS: patient oriented x3 Psych: COMMON NORMALS: mental status grossly normal Urinary Catheter Management: Burnette: Cath Placed During This Visit: yes Urinary Catheter Date of Insertion: 10/09/24 Urinary Catheter Time of Insertion: 05:42 Data 10/09/24 02:53 10/09/24 02:53 A&P Assessment and plan (1) Fall: (2) Closed left hip fracture: Plan Alfonso Chand is a 74 yo male w/ COPD, not on O2, HTN, Depression, & GERD, who was brought to [facility]'s ED on 08/08/2024 after a fall. In the ED, his vital signs were within normal limits. His EKG showed NSR with no ST changes, and a QTc of 431. His CXR showed a 2.6cm R. LL mass w/ calcification. His pelvic Xray showed an acute subcapital fracture of the L. hip w/o dislocation. He was given 2 mg of morphine IVP x 1 which decreased his pain to a 3/10. #Acute subcapital fracture of the L. hip w/o dislocation -Orthopedic surgery consulted - NPO - Pain control Morphine 2mg IVP q4h prn -PT OT after surgery #Falls, dizziness -CT head #Disequilibrium -After inner ear surgery #COPD not in exacerbation: Duonebs ordered and Symbicort reordered. #HTN: Monitor #Depression #GERD: #R. LL mass: Outpatient f/u DVT ppx: SCD GI ppx: PPI Suni Chand (): [phone] Attestations 2 Medical Necessity Statement*: Patient requires hospitalization for left hip fracture Diagnoses Fall W19.XXXA Closed left hip fracture S72.002A
[2024-10-09] MEDS: mupirocin oint 22 gm 1 APPLIC NASAL (17:28)
[2024-10-09] MEDS: sennosides-docusate Tablet 2 TAB PO (17:29)
[2024-10-09] MEDS: chlorhexidine gluconate 0.12% Btl 473 mL 30 ML MUCOUS MEM ×2 (17:29→20:13)
[2024-10-09] MEDS: iron polysaccharide complex 150 mg Capsule PO (17:29)
[2024-10-09] MEDS: calcium carb-vit d 600mg/400unit 1 Tablet 1 EACH PO (17:29)
[2024-10-09] MEDS: oxyCODONE 5 mg IR Tab/Cap PO (18:55)
[2024-10-09] MEDS: tranexamic acid 1,000 MG/100 ML PREMIX 600 MG IV (20:03)
[2024-10-09] MEDS: ceFAZolin 2,000 MG in sodium chloride 0.9% (plus) 50 ML 100 MG IV (21:44)
[2024-10-10] VITALS (17 sets, daily range): BP systolic 114–137; BP diastolic 58–79; PULSE 71–86; RESP 15–18; TEMP 36.3–37; O2SAT 90–94
[2024-10-10] MEDS: oxyCODONE 5 mg IR Tab/Cap PO ×3 (05:14→21:35)
[2024-10-10] MEDS: acetaminophen 1,000 MG/100 ML PIGGYBACK 400 MG IV (05:15)
[2024-10-10 05:28] LABS: Basophils % 0.2 %; Eosinophils % 0.3 %; Hematocrit 32.8 % (37-53); Lymphocytes # 1.1 10^3/uL (0.8-4.8); Lymphocytes % 11.5 %; Mean Corpuscular Volume 90.6 fl (82-101); Mean Platelet Volume 10.6 fL (7.4-10.4); Monocytes # 0.7 10^3/uL (0.2-0.9); Monocytes % 7.2 %; Neutrophils # 7.34 10^3/uL (1.8-7.7); Neutrophils % 80.6 %; Nucleated Red Blood Cells % 0 %; Platelet Count 260 10^3/cmm (157-399); Red Blood Count 3.62 10^6/uL (3.85-5.65); Red Cell Distribution Width 14.9 % (12.1-15.1); White Blood Count 9.12 10^3/uL (3.29-11.43)
[2024-10-10] MEDS: ceFAZolin 2,000 MG in sodium chloride 0.9% (plus) 50 ML 100 MG IV ×2 (05:46→13:09)
[2024-10-10] MEDS: buPROPion XL (24 HR) 150 mg Tablet PO (05:47)
[2024-10-10 05:57] LABS: Alanine Aminotransferase 14 U/L (0-41); Albumin Level 3.1 g/dL (3.5-5.2); Alkaline Phosphatase 90 U/L (40-130); Anion Gap 14.2 (5-19); Aspartate Amino Transferase 27 U/L (0-40); Blood Urea Nitrogen 19 mg/dL (8-23); Calcium 8.3 mg/dL (8.5-10.5); Carbon Dioxide 22 mmol/L (22-29); Chloride 105 mmol/L (98-107); Creatinine Clr Calc Pharmacy 43.9322; Globulin 2.4 g/dL (1.3-4.6); Glucose 108 mg/dL (65-115); Magnesium 1.8 mg/dL (1.7-2.3); Osmolality Calculated 287 mOsm/kg (285-295); Potassium 4.2 mmol/L (3.5-5.1); Sodium 137 mmol/L (136-145); Total Bilirubin 0.3 mg/dL (0.15-1.2); Total Protein 5.5 g/dL (6.6-8.7)
[2024-10-10] MEDS: pantoprazole 40 mg SDV IVP (06:16)
[2024-10-10] MEDS: TRAMadol 50 mg Tablet PO ×3 (07:47→23:06)
[2024-10-10] MEDS: iron polysaccharide complex 150 mg Capsule PO ×2 (07:47→17:21)
[2024-10-10] MEDS: enoxaparin 30 mg/0.3 mL Syringe SUBCUT (07:47)
[2024-10-10] MEDS: albuterol 2.5 mg/3 mL Neb INHALATION ×3 (08:02→20:21)
[2024-10-10] MEDS: budesonide 0.5 mg/2 mL Neb INHALATION ×2 (08:02→20:21)
[2024-10-10] MEDS: calcium carb-vit d 600mg/400unit 1 Tablet 1 EACH PO ×2 (08:39→17:21)
[2024-10-10] MEDS: sennosides-docusate Tablet 2 TAB PO ×2 (08:39→17:21)
[2024-10-10] MEDS: mupirocin oint 22 gm 1 APPLIC NASAL ×2 (08:39→17:20)
[2024-10-10] MEDS: multivitamin therapeutic Tablet 1 TAB PO (08:39)
[2024-10-10] MEDS: chlorhexidine gluconate 0.12% Btl 473 mL 30 ML MUCOUS MEM ×4 (08:40→20:41)
--- NOTE | 2024-10-10 08:57 | PC.CHAP ---
Pastoral Care Encounter/Spiritual Assessment Type of Contact [] Declined district sales manager visit [] Patient/Family/Request visit [] Outpatient visit [] Follow-up visit [] Physician referral [] Code/Alert [X] Routine visit [] Staff referral [] Actively dying [] Patient sleeping [] Family support [] [] Out of room [] Palliative care [] [] Receiving care in room [] Pre-surgical visit [] Trauma [] Long length of stay [] ICU visit [] Other: Relational/Emotional Strength [X] Patient feels connected with others/family/visitors/staff [] Distress [] Loneliness/isolation [] Abandonment Spirituality of Patient [X] Person of Halie [X] Attends Alevism of their Halie [X] Believes in Prayer [] Reads Bible or Quaker materials [] There are Spiritual issues to be addressed Valve Pipe Irrigator Interventions [X] Prayer [X] Active listening [X] Non-anxious presence [] Spiritual/emotional support [] Crisis/trauma care [] Spiritual counseling [] Bereavement support [] Provided bereavement packet [] Provided Bible/devotional materials [] Provided toy/stuffed animal, coloring book to patient or family member [] Provided Communion [] Anointing/[place] [] Salvation [] Completed spiritual assessment [] Other: Impact on Illness or Injury [] Angry [] Fearful [] Anxious [] Often cries [] Exhaustion [] Unable to work [] Unable to attend christian [] Unable to walk/stand [] Unable to read [] Unable to drive [] Unable to eat/drink [] Unable to sleep [] Unable to be with family [] Patient intubated [] Other: Tired but feeling better Summary Prayer +2 Time spent with patient 20 MIN
--- NOTE | 2024-10-10 09:12 | PC.SOCIAL ---
IMM Update Pg. 2 of IMM updated and reviewed with patient, who verbalized understanding. Copy provided.
[2024-10-10] MEDS: morphine 4 mg/mL SDV 1 mL 2 MG IVP ×2 (09:57→14:56)
[2024-10-10] MEDS: ondansetron 2 mg/ML SDV 2 mL 4 MG IVP ×2 (10:27→14:56)
--- NOTE | 2024-10-10 13:06 | P.PN_ITS ---
Subjective 2 Subjective: Patient postop day 1 left hip hemiarthroplasty. Pain controlled with medications. Family at bedside. Will continue to progress with therapy case management for discharge planning. Vitals/I&O/Wt Last Vital Signs Temp 97.8 F 10/10/24 11:16 Pulse 71 10/10/24 12:50 Resp 16 10/10/24 12:47 BP 128/74 10/10/24 11:16 Pulse Ox 92 10/10/24 12:47 O2 Del Method Room Air 10/10/24 12:47 O2 Flow Rate 1 10/09/24 20:00 10/09/24 10/10/24 10/10/24 22:59 06:59 14:59 Intake Total 1590 / 1590 270 / 1860 118 / 118 Output Total 1000 / 1100 300 / 1400 375 / 375 Balance 590 / 490 -30 / 460 -257 / -257 Weight last 48 hrs Weight 113 lb 8 oz Weight 113 lb 9.6 oz Weight 113 lb 9.6 oz Weight 113 lb Physical Exam 2 Narrative: Examination of the left lower extremity examination left lower extremity satisfactory leg length alignment as well as patient's dressings on in place clean dry and intact normal postoperative swelling about the left hip. Patient is able to wiggle toes plantarflex and dorsiflex ankle sensations intact light touch distally. Distal pulses are palpable left lower extremity compartments are soft compressible. Urinary Catheter Management: Burnette: Cath Placed During This Visit: yes, but has since been removed by the nurse Reason for Continuing Indwelling Catheter: Decision to DC Catheter Urinary Catheter Date of Insertion: 10/09/24 Urinary Catheter Time of Insertion: 05:42 Date Urinary Catheter Removed: 10/10/24 Time Urinary Catheter Discontinued: 08:10 Data 10/13/24 03:38 10/13/24 03:38 Xray Ortho: Radiologist's impression: Ordering Provider/Ordering MD: Dirk Mcdaniels Date of Service: 10/09/24 Procedure(s): XR hip LT 2-3V wo/w pel* [id number] Accession Number(s): [id number] Report Number: [id number] PROCEDURE INFORMATION: Exam: XR Left Hip Exam date and time: 10/09/2024 2:52 PM Age: 74 years old Clinical indication: Other: Post op; Prior surgery; Surgery date: Post-operative (0-2 days); Surgery type: Lt. Hip; Additional info: Post op left hip jessica, do in pacu TECHNIQUE: Imaging protocol: Radiologic exam of the left hip. Views: 2 or 3 views hip with pelvis when performed. COMPARISON: CR (PELVIS, ) 10/09/2024 2:31 AM FINDINGS: Bones/joints: Postsurgical changes with left hip prosthesis. Satisfactory or anatomic alignment and position noted. Hardware appears intact. Adjacent osseous structures show no acute abnormality. Soft tissues: Postsurgical soft tissue changes including skin cinthya. XR/XR hip LT 2-3V wo/w pel* [id number] IMPRESSION: Postsurgical change with left hip prosthesis. No acute findings otherwise. A&P Assessment and plan (1) Closed left hip fracture: Plan Postop day 1 left hip hemiarthroplasty weight-bear as tolerated left lower extremity Posterior hip precautions AM labs reviewed Internal medicine on board as primary Pain control DVT prophylaxis*-Lovenox PT/OT Case management for discharge planning Ortho will continue to follow Change dressing as needed Attestations 2 Medical Necessity Statement*: Ongoing care status post left hip hemiarthroplasty Coding Level of Care Code Acute Code for Chg Fwd Diagnoses Closed left hip fracture S72.002A Time Spent (min) 15
--- NOTE | 2024-10-10 14:20 | PM.PN ---
Subjective Subjective: Patient was seen this morning, participating with physical therapy, no acute events overnight, no fevers, chills, no cough Vitals/I&O/Wt Last Vital Signs Temp 97.8 F 10/10/24 11:16 Pulse 71 10/10/24 12:50 Resp 16 10/10/24 12:47 BP 128/74 10/10/24 11:16 Pulse Ox 92 10/10/24 12:47 O2 Del Method Room Air 10/10/24 12:47 O2 Flow Rate 1 10/09/24 20:00 10/09/24 10/10/24 10/10/24 22:59 06:59 14:59 Intake Total 1590 / 1590 270 / 1860 118 / 118 Output Total 1000 / 1100 300 / 1400 375 / 375 Balance 590 / 490 -30 / 460 -257 / -257 Weight last 48 hrs Weight 51.483 kg Weight 51.528 kg Weight 51.528 kg Weight 51.256 kg Physical Exam Const: COMMON NORMALS: no acute distress and patient oriented x3 Resp: COMMON NORMALS: normal respiratory effort, No retractions, No use of accessory muscles and clear to auscultation bilaterally AUSCULTATION: clear to auscultation bilaterally Cardio: COMMON NORMALS: regular rate, regular rhythm, S1 normal heart sound present and S2 normal heart sound present RATE: regular rate RHYTHM: regular rhythm HEART SOUNDS: S1 normal heart sound present and S2 normal heart sound present GI: COMMON NORMALS: Normal to inspection, nondistended, normoactive bowel sounds present, Soft to palpation and non-tender PALPATION: Yes Soft to palpation Extremity: COMMON NORMALS: no pedal edema Neuro: COMMON NORMALS: patient oriented x3 Psych: COMMON NORMALS: mental status grossly normal Urinary Catheter Management: Burnette: Cath Placed During This Visit: yes, but has since been removed by the nurse Reason for Continuing Indwelling Catheter: Decision to DC Catheter Urinary Catheter Date of Insertion: 10/09/24 Urinary Catheter Time of Insertion: 05:42 Date Urinary Catheter Removed: 10/10/24 Time Urinary Catheter Discontinued: 08:10 Data 10/10/24 04:29 10/10/24 04:29 A&P Assessment and plan (1) Fall: (2) Closed left hip fracture: Plan Alfonso Chand is a 74 yo male w/ COPD, not on O2, HTN, Depression, & GERD, who was brought to [facility]'s ED on 08/08/2024 after a fall. In the ED, his vital signs were within normal limits. His EKG showed NSR with no ST changes, and a QTc of 431. His CXR showed a 2.6cm R. LL mass w/ calcification. His pelvic Xray showed an acute subcapital fracture of the L. hip w/o dislocation. He was given 2 mg of morphine IVP x 1 which decreased his pain to a 3/10. #Acute subcapital fracture of the L. hip w/o dislocation -Orthopedic surgery consulted -Status post surgical invention - Pain control Morphine 2mg IVP q4h prn -PT OT after surgery #Falls, dizziness -CT head, no acute findings #Disequilibrium -After inner ear surgery #COPD not in exacerbation: Duonebs ordered and Symbicort reordered. #HTN: Monitor #Depression #GERD: #R. LL mass: Outpatient f/u DVT ppx: SCD GI ppx: PPI Suni Chand (): [phone] Plan for today, continue PT OT, pain control, continue to clinically monitor, snf facility placement versus home health care based on progress Attestations Medical Necessity Statement*: Patient requires hospitalization for left hip fracture Diagnoses Fall W19.XXXA Closed left hip fracture S72.002A
[2024-10-10] MEDS: acetaminophen 1,000 MG/100 ML PIGGYBACK 100 MG IV (16:07)
--- NOTE | 2024-10-10 16:52 | PC.NURSE ---
Pt has not voided since jenkins removed late morning. States he does not feel the urge to void. Bladder scan shows approx 200 ml of urine in bladder at this time. Will continue to monitor.
[2024-10-10] MEDS: acetaminophen 325 mg Tablet 650 MG PO (23:06)
[2024-10-11] VITALS (11 sets, daily range): BP systolic 125–145; BP diastolic 74–78; PULSE 63–88; RESP 15–18; TEMP 36.7–37.1; O2SAT 91–95
[2024-10-11 05:06] LABS: Basophils % 0.1 %; Eosinophils % 0.2 %; Hematocrit 30.4 % (37-53); Lymphocytes # 0.9 10^3/uL (0.8-4.8); Lymphocytes % 9.9 %; Mean Corpuscular HGB Conc 32.2 g/dL (30-55); Mean Corpuscular Volume 89.9 fl (82-101); Mean Platelet Volume 10.4 fL (7.4-10.4); Monocytes # 0.9 10^3/uL (0.2-0.9); Monocytes % 9.6 %; Neutrophils # 7.16 10^3/uL (1.8-7.7); Neutrophils % 79.9 %; Nucleated Red Blood Cells % 0 %; Platelet Count 183 10^3/cmm (157-399); Red Blood Count 3.38 10^6/uL (3.85-5.65); Red Cell Distribution Width 14.9 % (12.1-15.1); White Blood Count 8.97 10^3/uL (3.29-11.43)
[2024-10-11 05:22] LABS: Alanine Aminotransferase < 5 U/L (0-41); Alkaline Phosphatase 87 U/L (40-130); Anion Gap 13.1 (5-19); Aspartate Amino Transferase 23 U/L (0-40); Blood Urea Nitrogen 15 mg/dL (8-23); Calcium 8.6 mg/dL (8.5-10.5); Carbon Dioxide 23 mmol/L (22-29); Chloride 101 mmol/L (98-107); Creatinine Clr Calc Pharmacy 58.5579; Globulin 2.6 g/dL (1.3-4.6); Glucose 98 mg/dL (65-115); Magnesium 1.6 mg/dL (1.7-2.3); Osmolality Calculated 277 mOsm/kg (285-295); Phosphorus 2.6 mg/dL (2.5-4.5); Potassium 4.1 mmol/L (3.5-5.1); Sodium 133 mmol/L (136-145); Total Bilirubin 0.3 mg/dL (0.15-1.2); Total Protein 5.6 g/dL (6.6-8.7)
[2024-10-11] MEDS: buPROPion XL (24 HR) 150 mg Tablet PO (06:30)
[2024-10-11] MEDS: pantoprazole 40 mg SDV IVP (06:30)
[2024-10-11] MEDS: oxyCODONE 5 mg IR Tab/Cap PO ×2 (06:31→14:46)
[2024-10-11] MEDS: calcium carb-vit d 600mg/400unit 1 Tablet 1 EACH PO ×2 (08:20→16:55)
[2024-10-11] MEDS: enoxaparin 30 mg/0.3 mL Syringe SUBCUT (08:20)
[2024-10-11] MEDS: iron polysaccharide complex 150 mg Capsule PO ×2 (08:20→16:55)
[2024-10-11] MEDS: sennosides-docusate Tablet 2 TAB PO ×2 (08:20→16:55)
[2024-10-11] MEDS: multivitamin therapeutic Tablet 1 TAB PO (08:20)
[2024-10-11] MEDS: albuterol 2.5 mg/3 mL Neb INHALATION (08:39)
[2024-10-11] MEDS: budesonide 0.5 mg/2 mL Neb INHALATION ×2 (08:39→21:11)
[2024-10-11] MEDS: acetaminophen 325 mg Tablet 650 MG PO ×2 (09:31→18:16)
[2024-10-11] MEDS: TRAMadol 50 mg Tablet PO ×2 (09:31→18:15)
--- NOTE | 2024-10-11 11:44 | P.PN_ITS ---
Subjective 2 Subjective: Patient seen and examined today he is progressing well. At this point in time discussing with family for discharge planning. Stable from orthopedic standpoint. Vitals/I&O/Wt Last Vital Signs Temp 98.4 F 10/11/24 08:00 Pulse 73 10/11/24 08:40 Resp 16 10/11/24 08:40 BP 145/74 10/11/24 08:00 Pulse Ox 92 10/11/24 08:40 O2 Del Method Room Air 10/11/24 08:40 O2 Flow Rate 1 10/10/24 20:26 10/10/24 10/11/24 10/11/24 22:59 06:59 14:59 Intake Total 340 / 508 240 / 748 Output Total 400 / 775 200 / 975 Balance -60 / -267 40 / -227 Weight last 48 hrs Weight 113 lb 9.6 oz Weight 113 lb 12.8 oz Weight 113 lb 8 oz Weight 113 lb 9.6 oz Physical Exam 2 Narrative: Examination of the left lower extremity examination left lower extremity satisfactory leg length alignment as well as patient's dressings on in place clean dry and intact normal postoperative swelling about the left hip. Patient is able to wiggle toes plantarflex and dorsiflex ankle sensations intact light touch distally. Distal pulses are palpable left lower extremity compartments are soft compressible. Urinary Catheter Management: Burnette: Cath Placed During This Visit: yes, but has since been removed by the nurse Reason for Continuing Indwelling Catheter: Decision to DC Catheter Urinary Catheter Date of Insertion: 10/09/24 Urinary Catheter Time of Insertion: 05:42 Date Urinary Catheter Removed: 10/10/24 Time Urinary Catheter Discontinued: 08:10 Data 10/11/24 04:50 10/11/24 04:50 A&P Assessment and plan (1) Closed left hip fracture: Plan Weight-bear as tolerated left lower extremity Posterior hip precautions AM labs reviewed Internal medicine on board as primary Pain control DVT prophylaxis*-Lovenox PT/OT Case management for discharge planning Patient this point time stable for discharge from orthopedic standpoint orthopedic surgery team will sign off patient at this time follow-up prophy if there is any question pertaining to patient's care. For contact orthopedics on- call. All questions answered. Appropriate discharge instructions in patient's chart as well as for DVT prophylaxis. Will defer to primary for finalize pain medication. Patient family understand agree with current plan. Questions answered. Will follow-up in the orthopedic office in 2 weeks. Patient family understand agree with current plan. All questions answered. Attestations 2 Medical Necessity Statement*: Ongoing care status post left hip hemiarthroplasty Coding Level of Care Code Acute Code for Chg Fwd Diagnoses Closed left hip fracture S72.002A
--- NOTE | 2024-10-11 14:32 | P.PN_ITS ---
Subjective 2 Subjective: Patient was seen this morning, denies any fevers, no chills, no cough, is working with physical therapy Vitals/I&O/Wt Last Vital Signs Temp 98.0 F 10/11/24 11:49 Pulse 81 10/11/24 14:08 Resp 16 10/11/24 14:08 BP 132/78 10/11/24 11:49 Pulse Ox 92 10/11/24 14:08 O2 Del Method Room Air 10/11/24 14:08 O2 Flow Rate 1 10/10/24 20:26 10/10/24 10/11/24 10/11/24 22:59 06:59 14:59 Intake Total 340 / 508 240 / 748 120 / 120 Output Total 400 / 775 200 / 975 Balance -60 / -267 40 / -227 120 / 120 Weight last 48 hrs Weight 51.528 kg Weight 51.619 kg Weight 51.483 kg Weight 51.528 kg Physical Exam 2 Const: COMMON NORMALS: no acute distress and patient oriented x3 Neck/C-Spine: COMMON NORMALS: no JVD Resp: COMMON NORMALS: normal respiratory effort, No retractions, No use of accessory muscles and clear to auscultation bilaterally AUSCULTATION: clear to auscultation bilaterally Cardio: COMMON NORMALS: no JVD, regular rate, regular rhythm, S1 normal heart sound present and S2 normal heart sound present RATE: regular rate RHYTHM: regular rhythm HEART SOUNDS: S1 normal heart sound present and S2 normal heart sound present GI: COMMON NORMALS: Normal to inspection, nondistended, normoactive bowel sounds present and non-tender Extremity: COMMON NORMALS: no pedal edema Neuro: COMMON NORMALS: patient oriented x3 Psych: COMMON NORMALS: mental status grossly normal Urinary Catheter Management: Burnette: Cath Placed During This Visit: yes, but has since been removed by the nurse Reason for Continuing Indwelling Catheter: Decision to DC Catheter Urinary Catheter Date of Insertion: 10/09/24 Urinary Catheter Time of Insertion: 05:42 Date Urinary Catheter Removed: 10/10/24 Time Urinary Catheter Discontinued: 08:10 Data 10/11/24 04:50 10/11/24 04:50 A&P Assessment and plan (1) Closed left hip fracture: (2) Fall: Plan Alfonso Chand is a 74 yo male w/ COPD, not on O2, HTN, Depression, & GERD, who was brought to [facility]'s ED on 08/08/2024 after a fall. In the ED, his vital signs were within normal limits. His EKG showed NSR with no ST changes, and a QTc of 431. His CXR showed a 2.6cm R. LL mass w/ calcification. His pelvic Xray showed an acute subcapital fracture of the L. hip w/o dislocation. He was given 2 mg of morphine IVP x 1 which decreased his pain to a 3/10. #Acute subcapital fracture of the L. hip w/o dislocation -Orthopedic surgery consulted -Status post surgical invention - Pain control Morphine 2mg IVP q4h prn -PT OT after surgery #Falls, dizziness -CT head, no acute findings #Disequilibrium -After inner ear surgery #COPD not in exacerbation: Duonebs ordered and Symbicort reordered. #HTN: Monitor #Depression #GERD: #R. LL mass: Outpatient f/u DVT ppx: SCD GI ppx: PPI Suni Chand (): [phone] Plan for today, continue PT OT, pain control, continue to clinically monitor, half-way facility placement versus home health care based on progress Attestations 2 Medical Necessity Statement*: Patient requires hospitalization for left hip fracture Diagnoses Closed left hip fracture S72.002A Fall W19.XXXA
[2024-10-11] MEDS: chlorhexidine gluconate 0.12% Btl 473 mL 30 ML MUCOUS MEM ×2 (16:56→20:14)
[2024-10-11] MEDS: mupirocin oint 22 gm 1 APPLIC NASAL (16:56)
[2024-10-12] VITALS (11 sets, daily range): BP systolic 123–147; BP diastolic 69–80; PULSE 75–95; RESP 16–20; TEMP 36.7–37.1; O2SAT 88–95
[2024-10-12] MEDS: oxyCODONE 5 mg IR Tab/Cap PO ×3 (03:44→17:13)
[2024-10-12] MEDS: pantoprazole 40 mg SDV IVP (05:45)
[2024-10-12] MEDS: buPROPion XL (24 HR) 150 mg Tablet PO (05:45)
[2024-10-12 05:47] LABS: Basophils % 0.3 %; Eosinophils # 0.1 10^3/uL (0.0-0.8); Eosinophils % 0.8 %; Hematocrit 28.5 % (37-53); Lymphocytes # 0.7 10^3/uL (0.8-4.8); Lymphocytes % 11.1 %; Mean Corpuscular Hemoglobin 29.4 pg (27-33); Mean Corpuscular Volume 89.1 fl (82-101); Mean Platelet Volume 10.8 fL (7.4-10.4); Monocytes # 0.6 10^3/uL (0.2-0.9); Monocytes % 9.4 %; Neutrophils # 5.13 10^3/uL (1.8-7.7); Neutrophils % 78.1 %; Nucleated Red Blood Cells % 0 %; Platelet Count 198 10^3/cmm (157-399); Red Cell Distribution Width 14.7 % (12.1-15.1); White Blood Count 6.57 10^3/uL (3.29-11.43)
[2024-10-12 06:05] LABS: Alanine Aminotransferase < 5 U/L (0-41); Albumin Level 2.8 g/dL (3.5-5.2); Alkaline Phosphatase 75 U/L (40-130); Anion Gap 11.8 (5-19); Aspartate Amino Transferase 23 U/L (0-40); Blood Urea Nitrogen 15 mg/dL (8-23); Calcium 8.6 mg/dL (8.5-10.5); Carbon Dioxide 24 mmol/L (22-29); Chloride 103 mmol/L (98-107); Creatinine Clr Calc Pharmacy 59.2786; Globulin 2.8 g/dL (1.3-4.6); Glucose 94 mg/dL (65-115); Magnesium 1.8 mg/dL (1.7-2.3); Osmolality Calculated 281 mOsm/kg (285-295); Phosphorus 2.4 mg/dL (2.5-4.5); Potassium 3.8 mmol/L (3.5-5.1); Sodium 135 mmol/L (136-145); Total Bilirubin 0.3 mg/dL (0.15-1.2); Total Protein 5.6 g/dL (6.6-8.7)
[2024-10-12] MEDS: iron polysaccharide complex 150 mg Capsule PO ×2 (08:16→17:14)
[2024-10-12] MEDS: enoxaparin 30 mg/0.3 mL Syringe SUBCUT (08:16)
[2024-10-12] MEDS: calcium carb-vit d 600mg/400unit 1 Tablet 1 EACH PO ×2 (08:16→17:14)
[2024-10-12] MEDS: multivitamin therapeutic Tablet 1 TAB PO (08:16)
[2024-10-12] MEDS: sennosides-docusate Tablet 2 TAB PO ×2 (08:16→17:14)
[2024-10-12] MEDS: TRAMadol 50 mg Tablet PO (08:19)
[2024-10-12] MEDS: chlorhexidine gluconate 0.12% Btl 473 mL 30 ML MUCOUS MEM ×3 (08:20→20:31)
[2024-10-12] MEDS: mupirocin oint 22 gm 1 APPLIC NASAL ×2 (08:21→17:14)
[2024-10-12] MEDS: budesonide 0.5 mg/2 mL Neb INHALATION ×2 (08:56→20:24)
[2024-10-12] MEDS: albuterol 2.5 mg/3 mL Neb INHALATION (08:57)
--- NOTE | 2024-10-12 15:26 | PM.PN ---
Subjective Subjective: Patient was seen this morning, denies any fevers, chills, no cough does report generalized weakness Vitals/I&O/Wt Last Vital Signs Temp 98.1 F 10/12/24 12:00 Pulse 83 10/12/24 12:00 Resp 16 10/12/24 12:00 BP 129/69 10/12/24 12:00 Pulse Ox 91 10/12/24 12:00 O2 Del Method Room Air 10/12/24 12:00 O2 Flow Rate 1 10/10/24 20:26 10/12/24 10/12/24 10/12/24 06:59 14:59 22:59 Intake Total 480 / 480 Balance 480 / 480 Weight last 48 hrs Weight 53.252 kg Weight 51.528 kg Weight 51.619 kg Physical Exam Const: COMMON NORMALS: no acute distress and patient oriented x3 Resp: COMMON NORMALS: normal respiratory effort, No retractions, No use of accessory muscles and clear to auscultation bilaterally AUSCULTATION: clear to auscultation bilaterally Cardio: COMMON NORMALS: regular rate, regular rhythm, S1 normal heart sound present and S2 normal heart sound present RATE: regular rate RHYTHM: regular rhythm HEART SOUNDS: S1 normal heart sound present and S2 normal heart sound present GI: COMMON NORMALS: Normal to inspection, nondistended, normoactive bowel sounds present and non-tender Extremity: COMMON NORMALS: no pedal edema Neuro: COMMON NORMALS: patient oriented x3 Psych: COMMON NORMALS: mental status grossly normal Urinary Catheter Management: Burnette: Cath Placed During This Visit: yes, but has since been removed by the nurse Reason for Continuing Indwelling Catheter: Decision to DC Catheter Urinary Catheter Date of Insertion: 10/09/24 Urinary Catheter Time of Insertion: 05:42 Date Urinary Catheter Removed: 10/10/24 Time Urinary Catheter Discontinued: 08:10 Data 10/12/24 04:09 10/12/24 04:09 A&P Assessment and plan (1) Closed left hip fracture: (2) Fall: Plan Alfonso Chand is a 74 yo male w/ COPD, not on O2, HTN, Depression, & GERD, who was brought to [facility]'s ED on 08/08/2024 after a fall. In the ED, his vital signs were within normal limits. His EKG showed NSR with no ST changes, and a QTc of 431. His CXR showed a 2.6cm R. LL mass w/ calcification. His pelvic Xray showed an acute subcapital fracture of the L. hip w/o dislocation. He was given 2 mg of morphine IVP x 1 which decreased his pain to a 3/10. #Acute subcapital fracture of the L. hip w/o dislocation -Orthopedic surgery consulted -Status post surgical invention - Pain control Morphine 2mg IVP q4h prn -PT OT after surgery #Falls, dizziness -CT head, no acute findings #Disequilibrium -After inner ear surgery #COPD not in exacerbation: Duonebs ordered and Symbicort reordered. #HTN: Monitor #Depression #GERD: #R. LL mass: Outpatient f/u DVT ppx: SCD GI ppx: PPI Suni Chand (): [phone] Plan for today, continue PT OT, pain control, continue to clinically monitor, assisted facility placement versus home health care based on progress Attestations Medical Necessity Statement*: Patient requires hospitalization for left hip fracture Diagnoses Closed left hip fracture S72.002A Fall W19.XXXA
[2024-10-12] MEDS: methocarbamol 500 mg Tablet PO (17:16)
[2024-10-13] VITALS (8 sets, daily range): BP systolic 129–135; BP diastolic 71–77; PULSE 73–84; RESP 15–18; TEMP 36.4–38.1; O2SAT 90–93
[2024-10-13] MEDS: acetaminophen 325 mg Tablet 650 MG PO (00:35)
[2024-10-13 03:52] LABS: Basophils % 0.2 %; Eosinophils # 0.1 10^3/uL (0.0-0.8); Eosinophils % 1.4 %; Hematocrit 29.1 % (37-53); Lymphocytes # 0.7 10^3/uL (0.8-4.8); Lymphocytes % 12.7 %; Mean Corpuscular Hemoglobin 29.2 pg (27-33); Mean Corpuscular Volume 88.4 fl (82-101); Mean Platelet Volume 9.6 fL (7.4-10.4); Monocytes # 0.5 10^3/uL (0.2-0.9); Monocytes % 8.6 %; Neutrophils # 4.49 10^3/uL (1.8-7.7); Neutrophils % 76.8 %; Nucleated Red Blood Cells % 0 %; Platelet Count 191 10^3/cmm (157-399); Red Blood Count 3.29 10^6/uL (3.85-5.65); Red Cell Distribution Width 14.6 % (12.1-15.1); White Blood Count 5.84 10^3/uL (3.29-11.43)
[2024-10-13 04:21] LABS: Anion Gap 11.9 (5-19); Blood Urea Nitrogen 14 mg/dL (8-23); Calcium 8.4 mg/dL (8.5-10.5); Carbon Dioxide 27 mmol/L (22-29); Chloride 102 mmol/L (98-107); Creatinine Clr Calc Pharmacy 59.2786; Glucose 99 mg/dL (65-115); Osmolality Calculated 285 mOsm/kg (285-295); Potassium 3.9 mmol/L (3.5-5.1); Sodium 137 mmol/L (136-145)
[2024-10-13] MEDS: pantoprazole 40 mg SDV IVP (05:42)
[2024-10-13] MEDS: buPROPion XL (24 HR) 150 mg Tablet PO (05:43)
[2024-10-13] MEDS: TRAMadol 50 mg Tablet PO (05:43)
--- NOTE | 2024-10-13 08:38 | CT_ITS ---
WS: [id number] CT CHEST TECHNIQUE: Noncontrast CT of the chest with coronal and sagittal reformatted images. CLINICAL INFORMATION: RLL lung mass COMPARISON: 2022 DLP: 232.[address] scans at [facility] use at least one of these dose optimization techniques: automated e xposure control; mA and/or kV adjustment per patient size (includes targeted exams where dose is matc hed to clinical indication); or iterative reconstruction. FINDINGS: Hyperinflation. Advanced chronic emphysematous changes. Bilateral calcified granulomas. Large calcifi ed lesion in the RIGHT lower lobe is stable. This is unchanged dating back to 2013. Bulla formation in the bilateral lower lobes. Small LEFT and tiny RIGHT pleural effusions. Aortic adriana cification. Normal caliber thoracic aorta. Coronary calcification. Achalasia in the esophagus with ai r-fluid level. Dilated thoracic esophagus. Moderate thoracic kyphosis. Prior vertebroplasty in the sd dthoracic spine. No mediastinal or hilar lymphadenopathy. Splenic granulomas. Prior cholecystectomy. New biconcave compression fracture at T6. This is new since 09/05/2023 but likely subacute to chronic . Recommend correlation for back pain. Additional compression fractures are stable. Prior vertebroplasty at T10. Stable chronic compression at T3. Mild compression superior endplate T5. CT/CT chest wo con [id number] IMPRESSION: 1. Calcified lesion in the RIGHT lower lobe is stable dating back to 2013 2. New biconcave compression at T6 with loss of approximately 60% vertebral celio dy height. This is new since 09/05/2023 but has a subacute to chronic appearanc e.
[2024-10-13] MEDS: budesonide 0.5 mg/2 mL Neb INHALATION (08:43)
[2024-10-13] MEDS: iron polysaccharide complex 150 mg Capsule PO (08:54)
[2024-10-13] MEDS: enoxaparin 30 mg/0.3 mL Syringe SUBCUT (08:54)
[2024-10-13] MEDS: calcium carb-vit d 600mg/400unit 1 Tablet 1 EACH PO (08:55)
[2024-10-13] MEDS: sennosides-docusate Tablet 2 TAB PO (08:55)
[2024-10-13] MEDS: multivitamin therapeutic Tablet 1 TAB PO (08:55)
[2024-10-13] MEDS: oxyCODONE 5 mg IR Tab/Cap PO (12:34)
[2024-10-13 13:07] LABS: Bilirubin Urine Negative (Negative); Blood Urine Negative (Negative); Glucose Urine UA Negative (Normal); Ketones Urine Negative (Negative); Leukocyte Esterase Urine Negative (Negative); Nitrate Urine Negative (Negative); Protein Urine Negative (Negative); Specific Gravity, Urine 1.011 (1.005-1.030); Urine Appearance Clear (CLEAR); Urine Color Yellow (Yellow); pH Urine 7.5 (5-7)
[2024-10-13 13:12] LABS: Add Urine Microscopic? YES; Bacteria Urine None Seen /hpf; Hyaline Casts Urine 0.81 /lpf; RBC Urine 0-2 /hpf (0-2); Squamous Epithelial Cell Urine 0-5 /hpf (0-5); WBC Urine 0-5 /hpf (0-5)
--- NOTE | 2024-10-13 13:43 | PC.SOCIAL ---
IMM Updated Updated pt on IMM. No questions voiced. Provided pt a copy. Initialed, dated, & timed copy in chart.
--- NOTE | 2024-10-13 14:26 | PM.DCS ---
Discharge Providers Date of Admission: 10/09/24 04:41 Date of Discharge: October 13, 2024 Attending Provider at Admission: An Madison MD Attending Provider at Discharge: Luis Felipe Garrett MD Primary Care Provider: Marla Mooney MD Diagnoses at Discharge Discharge Diagnosis (1) Closed left hip fracture: Status: Acute (2) Fall: Status: Acute Reason for Visit Reason for Visit: left hip pain post fall Hospital Course Hospital Course This is a 74-year-old male with a past medical history of COPD hypertension, who presents [facility] for a fall For patient's acute subcapital fracture of left hip, orthopedic service was consulted, received pain control, surgical intervention, tolerated procedure well. Will be discharged on Lovenox for DVT prophylaxis, oxycodone to be used sparingly for pain, follow-up with Dr. Mcdaniels as outpatient, patient was discharged home with home health care For his right lower lobe, lesion, stable since 2013,, will have patient follow-up with pulmonary at [facility] Patient was also found to have a new biconcave compression at T6, with 60% vertebral body height loss, follow-up with Dr. Herrera as outpatient Physical Exam Const: COMMON NORMALS: no acute distress and patient oriented x3 Resp: COMMON NORMALS: normal respiratory effort, No retractions, No use of accessory muscles and clear to auscultation bilaterally AUSCULTATION: clear to auscultation bilaterally Cardio: COMMON NORMALS: regular rate, regular rhythm, S1 normal heart sound present and S2 normal heart sound present RATE: regular rate RHYTHM: regular rhythm HEART SOUNDS: S1 normal heart sound present and S2 normal heart sound present GI: COMMON NORMALS: Normal to inspection, nondistended, normoactive bowel sounds present and non-tender Extremity: COMMON NORMALS: no pedal edema Neuro: COMMON NORMALS: patient oriented x3 Psych: COMMON NORMALS: mental status grossly normal Urinary Catheter Management: Burnette: Cath Placed During This Visit: yes, but has since been removed by the nurse Reason for Continuing Indwelling Catheter: Decision to DC Catheter Urinary Catheter Date of Insertion: 10/09/24 Urinary Catheter Time of Insertion: 05:42 Date Urinary Catheter Removed: 10/10/24 Time Urinary Catheter Discontinued: 08:10 Discharge Data Studies Completed and Pending Completed Studies During Hospitalization Category Date Time Status CT chest wo con [id number] Routine Cat Scan 10/13/24 08:[address] head wo con* [id number] Routine Cat Scan 10/09/24 12:10 Completed XR chest 1V portable [id number] Stat Exams 10/09/24 02:41 Completed XR femur LT min 2V* [id number] Urgent Exams 10/09/24 11:14 Completed XR hip LT 2-3V wo/w pel* [id number] Routine Exams 10/09/24 14:35 Completed XR hip LT 2-3V wo/w pel* [id number] Stat Exams 10/09/24 02:27 Completed Pending at discharge Category Date Time Status Basic Metabolic Panel AM LABS Lab 10/15/24 04:00 Ordered Basic Metabolic Panel AM LABS Lab 10/14/24 04:00 Ordered Complete Blood Count w/Auto AM LABS Lab 10/15/24 04:00 Ordered Complete Blood Count w/Auto AM LABS Lab 10/14/24 04:00 Ordered Radiology Impressions Chest X-Ray 10/09/24 02:41 IMPRESSION: No acute process in the chest Femur X-Ray 10/09/24 11:14 IMPRESSION: Subcapital fracture of the left hip as noted on left hip exam. Remainder of the femur is unremarkable. Head CT 10/09/24 12:10 IMPRESSION: 1. Mild atrophic change and suggestion of bilateral chronic small-vessel disease change within the periventricular and subcortical deep white matter and basal ganglia. 2. No acute intracranial abnormality. Hip/Pelvis X-Ray 10/09/24 14:35 IMPRESSION: Postsurgical change with left hip prosthesis. No acute findings otherwise. Chest CT 10/13/24 08:38 IMPRESSION: 1. Calcified lesion in the RIGHT lower lobe is stable dating back to 2013 2. New biconcave compression at T6 with loss of approximately 60% vertebral body height. This is new since 09/05/2023 but has a subacute to chronic appearance. Laboratory Results WBC 5.84 10^3/uL (3.29-11.43) 10/13/24 03:38 RBC 3.29 10^6/uL (3.85-5.65) L 10/13/24 03:38 Hgb 9.60 g/dL (11.27-16.99) L 10/13/24 03:38 Hct 29.1 % (37-53) L 10/13/24 03:38 MCV 88.4 fl (82-101) 10/13/24 03:38 MCH 29.2 pg (27-33) 10/13/24 03:38 MCHC 33.0 g/dL (30-55) 10/13/24 03:38 RDW 14.6 % (12.1-15.1) 10/13/24 03:38 Plt Count 191 10^3/cmm (157-399) 10/13/24 03:38 MPV 9.6 fL (7.4-10.4) 10/13/24 03:38 Neut % (Auto) 76.8 % 10/13/24 03:38 Lymph % (Auto) 12.7 % 10/13/24 03:38 [place] % (Auto) 8.6 % 10/13/24 03:38 Eos % (Auto) 1.4 % 10/13/24 03:38 Baso % (Auto) 0.2 % 10/13/24 03:38 Neut # (Auto) 4.49 10^3/uL (1.8-7.7) 10/13/24 03:38 Lymph # (Auto) 0.7 10^3/uL (0.8-4.8) L 10/13/24 03:38 [place] # (Auto) 0.5 10^3/uL (0.2-0.9) 10/13/24 03:38 Eos # (Auto) 0.1 10^3/uL (0.0-0.8) 10/13/24 03:38 Baso # (Auto) 0.0 10^3/uL (0.0-0.1) 10/13/24 03:38 Nucleated RBC % (auto) 0 % 10/13/24 03:38 Nucleated RBCs # 0.0 /100WBC 10/13/24 03:38 PT 12.90 SECONDS (12.1-14.9) 10/09/24 02:53 INR 0.94 (0.8-1.2) 10/09/24 02:53 APTT 31.3 SECONDS (23.9-36.7) 10/09/24 02:53 Sodium 137 mmol/L (136-145) 10/13/24 03:38 Potassium 3.9 mmol/L (3.5-5.1) 10/13/24 03:38 Chloride 102 mmol/L (98-107) 10/13/24 03:38 Carbon Dioxide 27 mmol/L (22-29) 10/13/24 03:38 Anion Gap 11.9 (5-19) 10/13/24 03:38 BUN 14 mg/dL (8-23) 10/13/24 03:38 Creatinine 0.9 mg/dL (0.7-1.2) 10/13/24 03:38 GFR Calculation Not Reportable 10/13/24 03:38 Glucose 99 mg/dL (65-115) 10/13/24 03:38 Calculated Osmolality 285 mOsm/kg (285-295) 10/13/24 03:38 Calcium 8.4 mg/dL (8.5-10.5) L 10/13/24 03:38 Phosphorus 2.4 mg/dL (2.5-4.5) L 10/12/24 04:09 Magnesium 1.8 mg/dL (1.7-2.3) 10/12/24 04:09 Total Bilirubin 0.3 mg/dL (0.15-1.2) 10/12/24 04:09 AST 23 U/L (0-40) 10/12/24 04:09 ALT < 5 U/L (0-41) 10/12/24 04:09 Alkaline Phosphatase 75 U/L (40-130) 10/12/24 04:09 Total Protein 5.6 g/dL (6.6-8.7) L 10/12/24 04:09 Albumin 2.8 g/dL (3.5-5.2) L 10/12/24 04:09 Globulin 2.8 g/dL (1.3-4.6) 10/12/24 04:09 Urine Color Yellow (Yellow) 10/13/24 10:30 Urine Appearance Clear (CLEAR) 10/13/24 10:30 Urine pH 7.5 (5-7) 10/13/24 10:30 Ur Specific [place] 1.011 (1.005-1.030) 10/13/24 10:30 Urine Protein Negative (Negative) 10/13/24 10:30 Urine Glucose (UA) Negative (Normal) 10/13/24 10:30 Urine Ketones Negative (Negative) 10/13/24 10:30 Urine Blood Negative (Negative) 10/13/24 10:30 Urine Nitrate Negative (Negative) 10/13/24 10:30 Urine Bilirubin Negative (Negative) 10/13/24 10:30 Urine Urobilinogen 1.0 mg/dL (Negative) 10/13/24 10:30 Ur Leukocyte Esterase Negative (Negative) 10/13/24 10:30 Urine RBC 0-2 /hpf (0-2) 10/13/24 10:30 Urine WBC 0-5 /hpf (0-5) 10/13/24 10:30 Ur Squamous Epith Cells 0-5 /hpf (0-5) 10/13/24 10:30 Amorphous Sediment Not Reportable 10/13/24 10:30 Urine Bacteria None seen /hpf (NONE) 10/13/24 10:30 Hyaline Casts 0.81 /lpf 10/13/24 10:30 Blood Type A Positive 10/09/24 12:22 Rho(D) Type Rh positive 10/09/24 12:22 Antibody Screen Negative 10/09/24 12:22 Vitals Last Vital Signs Temp 97.5 F L 10/13/24 12:00 Pulse 84 10/13/24 12:00 Resp 16 10/13/24 12:34 BP 131/71 10/13/24 12:00 Pulse Ox 93 10/13/24 12:00 O2 Del Method Room Air 10/13/24 12:00 O2 Flow Rate 1 10/10/24 20:26 Discharge Plan Discharge Patient Disposition: Home Condition: Stable Prescriptions: New enoxaparin 30 mg/0.3 mL syringe 30 mg SUBCUT DAILY 35 Days Qty: 10.5 0RF ondansetron 4 mg tablet,disintegrating 4 mg PO Q8H PRN (Reason: nausea and vomiting) 3 Days Qty: 9 0RF oxycodone 10 mg tablet 10 mg PO Q6H PRN (Reason: pain) 7 Days Qty: 28 0RF Continued amlodipine 10 mg tablet 10 mg PO DAILY Qty: 90 1RF albuterol sulfate [Ventolin HFA] 90 mcg/actuation HFA aerosol inhaler See Rx Instructions .ROUTE .COMPLEX Qty: 8.5 5RF Dose Instruction: INHALE TWO PUFFS FOUR TIMES DAILY NEEDED FOR SHORTNESS OF BREATH or wheezing Rx Instructions: INHALE TWO PUFFS FOUR TIMES DAILY NEEDED FOR SHORTNESS OF BREATH or wheezing budesonide-formoterol [Symbicort] 160-4.5 mcg/actuation HFA aerosol inhaler 2 puff inhalation Q12H Qty: 10.2 5RF Rx Instructions: 340 B bupropion HCl 150 mg tablet extended release 24 hr 150 mg PO QAM Qty: 30 1RF pantoprazole 40 mg tablet,delayed release (DR/EC) 40 mg PO DAILY Qty: 90 3RF tramadol 50 mg tablet 50 mg PO BID PRN (Reason: pain) 30 Days Qty: 60 2RF Held lisinopril 40 mg tablet 40 mg PO DAILY Hold Instructions: Resume on 10/20/24. Discharge Orders: Discharge Order (Routine); Ordered 10/13/24 Ordered By: Luis Felipe Garrett Other Ambulatory Orders: DME: [facility] (Order) Location: None Selected Ordered By: Luis Felipe Garrett Referrals: Akil Pierce DO [Physician] - 1 week (t6 fx) Marla Mooney MD [Primary Care Provider] - Frank Talbert MD, MBBS, MPH [Referring] - 1 month (lung nodule) Dirk Mcdaniels DO [Physician] - (2 wks postop, with Dr Mcdaniels or Ion Mcdaniels PA-C) Discharge Diet: Regular Discharge Activity: Limit activity as instructed Patient Instructions: Enoxaparin (By injection), Oxycodone, Slow Release (By mouth), Acute Wound Care (DC), Opioid Safety, Post Anesthesia Care Activity Restrictions/Additional Instructions: Orthopedic discharge instructions: Patient may weight-bear as tolerated to the operative lower extremity Posterior hip precautions (avoid excess excessive hip flexion past 90 degrees and internal rotation) Take DVT prophylaxis (blood thinner) as prescribed ) Take pain medication as prescribed Take antinausea medication as needed Supplement with Citracal vitamin D for bone health and healing Ice as needed for pain and swelling Leave Silverlon bandage dressing on for 7 days after that may remove, rinse incision with warm soapy water/shower pat dry keep clean dry and intact and redress with a clean dry dressing. No baths or soap Follow-up in the orthopedic office in 2 weeks from date of surgery Contact the office for any questions or concerns per (fevers, increased drainage or redness around the incision site etc.) -For your lung nodule, please follow-up with pulmonary as outpatient for monitoring, -For your T6 compression fracture, please follow-up with Dr. Pierce Discharge Attestations Time Spent in Discharge Care*: greater than 30 min Quality Metrics Clinical Quality Measures [ No reported AMI, CVA or VTE this stay] Coding Level of Care Code 99695 Total time (in minutes) for Discharge: 45 Diagnoses Closed left hip fracture S72.002A Fall W19.XXXA
== END 2024-10-13 16:10 | disposition home health service (06) | DRG 522 ==
LOC: ER 02:51 → ER IP 03:22 → MEDSURG 04:44
PROVIDERS: Student in an Organized Health Care Education/Training Program; Admitting Provider Internal Medicine; Emergency Provider Emergency Medicine; PCP Family Medicine; Visit Provider Family Medicine
PROC: 0SRS01A Replacement of Left Hip Joint, Femoral Surface with Metal Synthetic Substitute, Uncemented, Open Approach (ICD-10-PCS; CPT 27125; principal; 2024-10-09 12:50)
DX: S72.012A Unspecified intracapsular fracture of left femur, initial encounter for closed fracture (principal); S22.059A Unspecified fracture of T5-T6 vertebra, initial encounter for closed fracture; W18.30XA Fall on same level, unspecified, initial encounter; J44.9 Chronic obstructive pulmonary disease, unspecified; I10 Essential (primary) hypertension; R91.1 Solitary pulmonary nodule; Z79.891 Long term (current) use of opiate analgesic; F32.A Depression, unspecified; K21.9 Gastro-esophageal reflux disease without esophagitis; R42 Dizziness and giddiness; G89.29 Other chronic pain; M54.50 Low back pain, unspecified; I70.1 Atherosclerosis of renal artery; F17.210 Nicotine dependence, cigarettes, uncomplicated; Z90.49 Acquired absence of other specified parts of digestive tract; M19.042 Primary osteoarthritis, left hand; M19.041 Primary osteoarthritis, right hand
CPT/HCPCS: 36415; 51702; 70450; 71045; 71250; 73502; 73552; 80048; 80053; 81001; 83735; 84100; 85025; 85610; 85730; 86850; 86900; 93005; 94640; 96372; 96374; 96375; 97110; 97116; 97161; 97166; 97530; 97535; 99285; C1776; J0131; J0690; J1650; J2270; J2405; J2470; J2704; J3010; J3370; J3490; J7030; J7613; J7626

== ENCOUNTER → 2024-10-28 10:52 | Outpatient (BNVA) | payer MEDICARE, SELFPAY | PROVIDERS: PCP Family Medicine; Visit Provider Student in an Organized Health Care Education/Training Program | DX: Z96.642 Presence of left artificial hip joint | CPT/HCPCS: 73502; 99024 ==

== ENCOUNTER → 2024-12-09 14:16 | Outpatient (BNVA) | payer MEDICARE, SELFPAY | PROVIDERS: PCP Family Medicine; Visit Provider Orthopaedic Surgery | DX: S22.050D Wedge compression fracture of T5-T6 vertebra, subsequent encounter for fracture with routine healing (principal); X58.XXXD Exposure to other specified factors, subsequent encounter | CPT/HCPCS: 72072; 99213 ==

== ENCOUNTER → 2025-01-02 11:37 | Outpatient (BNVA) | payer MEDICARE, SELFPAY | PROVIDERS: PCP Family Medicine; Visit Provider Family Medicine | DX: K55.1 Chronic vascular disorders of intestine (principal); I15.0 Renovascular hypertension; D62 Acute posthemorrhagic anemia; Z11.59 Encounter for screening for other viral diseases | CPT/HCPCS: 80061; 85025; 86803 ==

== ENCOUNTER → 2025-04-09 13:05 | Outpatient (BNVA) | payer MEDICARE, SELFPAY | PROVIDERS: PCP Family Medicine; Visit Provider Nurse Practitioner Family | DX: I15.0 Renovascular hypertension (principal); I70.1 Atherosclerosis of renal artery; F17.219 Nicotine dependence, cigarettes, with unspecified nicotine-induced disorders | CPT/HCPCS: 99214 ==

== ENCOUNTER 2025-04-21 08:34 | Outpatient (CLI) | payer MEDICARE, SELFPAY ==
--- NOTE | 2025-04-21 09:00 | CTR_ITS ---
PROCEDURE INFORMATION: Exam: CTA Abdomen With Contrast Exam date and time: 04/21/2025 9:07 AM Age: 75 years old Clinical indication: Condition or disease; Other: Renal artery stenosis TECHNIQUE: Imaging protocol: Computed tomographic angiography of the abdomen with contrast. Exam focused on the arteries. 3D rendering (Not supervised by radiologist): MIP and/or 3D reconstructed images were created by the technologist. Radiation optimization: All CT scans at this facility use at least one of these dose optimization techniques: automated exposure control; mA and/or kV adjustment per patient size (includes targeted exams where dose is matched to clinical indication); or iterative reconstruction. Contrast material: OMNI 350; Contrast volume: 100 ml; Contrast route: INTRAVENOUS (IV); COMPARISON: CT angio abdomen [id number] 12/18/2023 4:34 PM RADIATION DOSE METRICS: Total DLP (mGy-cm): 97.59 FINDINGS: Lungs: Severe emphysematous changes are noted in both lower lobes. A densely calcified mass is identified in the right lower lobe, unchanged from the prior examination and measuring 23.5 mm in diameter. This is most likely postinflammatory in nature. No soft tissue masses are seen. Aorta: Moderate aortoiliac atherosclerotic calcifications are seen without aneurysm or dissection. There is proximally 60% stenosis of the origin of the left renal artery (500/12). Focal 75% stenosis of the proximal right renal artery origin is also noted (502/11). There is a proximally 70% stenosis of the proximal superior mesenteric artery (7/62). Is a proximally 60% stenosis of the proximal celiac artery (7/62). The LUCIE appears to be. Celiac trunk and mesenteric arteries: See Aorta finding. Renal arteries: See Aorta finding. Liver: Normal. No mass. Gallbladder and biliary ducts: Prior cholecystectomy. Pancreas: Normal. No ductal dilation. Spleen: Multiple stable splenic granulomatous calcifications are present. Adrenal glands: Normal. No mass. Kidneys: The kidneys are symmetrically perfused and focal cortical scarring, hydronephrosis, or nephrolithiasis. No renal mass lesions are demonstrated. Stomach and bowel: Unremarkable. No obstruction. No mucosal thickening. Appendix: The appendix is not included on today's field view. Lymph nodes: Unremarkable. No enlarged lymph nodes. Intraperitoneal space: Unremarkable. No free air. No significant fluid collection. Bones/joints: T12-L1 through L5-S1 disc space narrowing is seen, greatest at the T12-L1 through L2-L3 levels with vacuum phenomenon noted in the T12-L1 through L3-L4 disc spaces.There is no fracture, lytic, or blastic lesion. Soft tissues: See Lungs finding. CT/CT angio abdomen [id number] IMPRESSION: 1. Severe emphysematous changes, similar to the prior study. 2. Relatively stable proximal bilateral renal arterial atherosclerotic change in stenosis proximally 75% stenosis of the proximal right renal artery and approximately 60% stenosis of the proximal left renal artery. 3. Probable interval increase in stenosis of the proximal superior mesenteric artery, today estimated at 70% stenosis compared with 25% stenosis the prior study, and proximal celiac artery, with approximately 60% stenosis compared less than 25% stenosis on prior study.
[2025-04-21 09:03] LABS: Blood Urea Nitrogen 21 mg/dL (8-23)
[2025-04-21] MEDS: iohexol 350 mg/mL 500 mL Btl (per mL) IV (09:15)
== END 2025-04-21 08:35 | disposition home or self-care (01) ==
LOC: RAD 08:35
PROVIDERS: PCP Family Medicine; Visit Provider Nurse Practitioner Family
DX: I70.1 Atherosclerosis of renal artery (principal); I15.0 Renovascular hypertension; I77.1 Stricture of artery; F17.219 Nicotine dependence, cigarettes, with unspecified nicotine-induced disorders
CPT/HCPCS: 74175; 82565; 84520